=== PATIENT | male | born 1950 | race Caucasian/White ===

== ENCOUNTER 2017-10-26 05:39 | Inpatient (IN) | payer MEDICARE ==
[~2017-10-26] VITALS: Ht 182.9 cm; Wt 132.4 kg
[2017-10-26] VITALS (7 sets, daily range): BP systolic 100–128; BP diastolic 52–73
[~2017-10-26 05:39] MED LIST: ACIPHEX 20 MG T20 MG PO; ALLOPURINOL 30300 M2 PO; CARISOPRODOL 3350 MG PO; COUMADIN 3 MG TA3 M1 PO; COUMADIN PO; COUMADIN7.5 MG PO; HYDROCHLOROTHIA25 M1 PO; IBUPROFEN 600600 M1 PO; KLOR-CON 1010 MEQ PO; LASIX 20 MG TAB20 MG PO; LEXAPRO 10 MG T10 MG PO; LISINOPRIL-HCT1 EAC1 PO; LOPRESSOR25 PO; MOBIC7.5 MG PO; NORCO 5-325 TA1 EACH PO; NORVASC5 MG PO; PEPCID40 MG PO; PREDNISONE 20 M20 M1 PO; TRAZODONE HCL50 MG PO; ZOCOR20 MG PO; ZOLOFT100 MG PO
[2017-10-26] MEDS ORDERED: SUPER B COMPLE150 MG PO (05:55)
[2017-10-26 06:13] LABS: ABSOLUTE EOSINOPHILS 0.3 thou/uL (0.0-0.7); ABSOLUTE LYMPHOCYTES 1.4 thou/uL (0.8-5.3); ABSOLUTE MONOCYTES 0.6 thou/uL (0.0-1.2); ABSOLUTE NEUTROPHILS 3.8 thou/uL (1.6-8.1); BASOPHILS 0.7 %; EOSINOPHILS 4.7 %; HEMATOCRIT 34.2 % (42.0-52.0); HEMOGLOBIN 11.7 gm/dL (14.0-18.0); LYMPHOCYTES 22.8 %; MCH 31.2 pg (26.0-34.0); MCHC 34.4 g/dL (28.0-37.0); MCV 90.9 fL (80.0-100.0); MONOCYTES 9.8 %; MPV 7.9 fl. (7.2-11.1); NUCLEATED RBCS 0 /100WBC; PLATELET COUNT* 178 thou/uL (150-400); RBC 3.76 mil/uL (4.50-6.00); RDW-CV 16.3 % (10.5-14.5); WBC 6.2 thou/uL (4.0-11.0)
[2017-10-26 06:19] LABS: PO2 81.1 mmHg (75.0-100.0)
[2017-10-26 06:20] LABS: PCO2 < 17.0 mmHg (35.0-45.0); pH 7.637 (7.340-7.450)
[2017-10-26 06:20] LABS: ANION GAP 12 mmol/L (7-16); BUN 34 mg/dL (7-18); CALCIUM 8.9 mg/dL (8.5-10.1); CHLORIDE 104 mmol/L (98-107); CO2 22 mmol/L (21-32); GLUCOSE 107 mg/dL (70-99); POTASSIUM 4.1 mmol/L (3.5-5.1); SODIUM 138 mmol/L (136-145)
[2017-10-26 06:25] LABS: APTT 44.6 Seconds (25.0-31.3); INR 3.1; PROTIME 30.1 Seconds (9.20-11.50)
--- NOTE | 2017-10-26 06:30 | NUR ---
PT ASKED ABOUT TAKING AM MEDS--MEDS ON HOLD PER DR ERAZO
[2017-10-26 06:39] LABS: ALBUMIN 3.7 g/dL (3.4-5.0); ALKALINE PHOSPHATASE 73 U/L (46-116); NT-PRO BRAIN NAT PEPTIDE 25 pg/mL (<300); SGOT 33 U/L (15-37); SGPT 41 U/L (30-65); TOTAL BILIRUBIN 0.5 mg/dL (<0.1-1.0); TOTAL PROTEIN 6.7 g/dL (6.4-8.2); TROPONIN-I LEVEL <0.06 ng/mL (<0.06)
[2017-10-26] MEDS ORDERED: ASPIR 8181 MG PO (09:19)
--- NOTE | 2017-10-26 10:26 | NUR ---
RECEIVED REPORT. ASSUMED CARE OF PT. VSS. CARDIAC MONTIORING IN PLACE. ADMISSION HISTORY AND ASSESSMENT COMPLETED CHARTED. PT ALERT AND ORIENTED. PT ON 2L PT REPORTS SOA WITH ACTIVITY. PT DENIES ANY COMPLAINTS OF PAIN OR DISCOMFORT THIS AM. PT IS UP INDPENENTLY IN ROOM. PT ORIENTED TO ROOM AND CALL LIGHT. PT INFORMED OF PLAN OF CARE. CALL LIGHT IS WITHIN REACH. WILL CONTINUE TO MONITOR FOR DURAITON OF SHFIT.
--- NOTE | 2017-10-26 15:38 | 2DMMODE ---
[place] [address] 2 D/M-MODE ECHOCARDIOGRAM Name: VAL GAONA Room: [address] IN [facility]#: [id number] Admission: 10/26/17 Attend Phys: Ramírez Coronel, Discharge: Date of : 50 Date of Service: 10/26/17 1537 Report #: [id number] THIS REPORT FOR: //name// APPROVED REPORT Study performed: 10/26/2017 14:29:16 EXAM: Comprehensive 2D, Doppler, and color-flow Echocardiogram Patient Location: In-Patient Room #: [facility] [place] [facility] [place] Status: routine BSA: 2.48 HR: 91 bpm BP: 121/73 mmHg Rhythm: NSR Other Information Study Quality: Good Indications Dyspnea 2D Dimensions LVEF(%): 50.38 (>50%) IVSd: 14.50 (7-11mm) LVOT Diam: 26.56 (18-24mm) LVDd: 34.96 mm PWd: 11.03 (7-11mm) Ascending Ao: 36.15 (22-36mm) LVDs: 26.24 (25-40mm) Aortic Root: 38.07 mm Elizondo's LVEF: 50.38 % Volumes Left Atrial Volume (Systole) LA ESV Index: 28.40 mL/m2 Aortic Valve AoV Peak Gregory.: 1.94 m/s AO Peak Gr.: 15.01 mmHg LVOT Max P.26 mmHg AO Mean Gr.: 8.42 mmHg LVOT Mean P.24 mmHg LVOT Max V: 1.44 m/s AO V2 VTI: 30.90 cm LVOT Mean V: 0.96 m/s JOSSELIN (VTI): 5.39 cm2 LVOT V1 VTI: 30.05 cm Mitral Valve E/A Ratio: 0.69 [place] [address] 2 D/M-MODE ECHOCARDIOGRAM Name: VAL GAONA Room: [address] IN .R.#: [id number] Admission: 10/26/17 Attend Phys: Ramírez Coronel, Discharge: Date of : 50 Date of Service: 10/26/17 1537 Report #: [id number] MV Decel. Time: 325.98 ms MV E Max Gregory.: 1.12 m/s MV PHT: 94.53 ms MVA (PHT): 2.33 cm2 TDI E/Lateral E': 12.44 E/Medial E': 16.00 Medial E' Gregory.: 0.07 m/s Lateral E' Gregory.: 0.09 m/s Pulmonary Valve PV Peak Gregory.: 1.24 m/s PV Peak Gr.: 6.16 mmHg Tricuspid Valve TR Peak Gr.: 23.66 mmHg RVSP: 28.00 mmHg Left Ventricle The left ventricle is normal size. There is normal LV segmental wall motion. There is normal left ventricular wall thickness. Left ventricular systolic function is normal. The left ventricular ejection fraction is within the normal range. LVEF is 65-70%. Grade I - abnormal relaxation pattern. Right Ventricle The right ventricle is normal size. The right ventricular systolic function is normal. Atria The left atrium size is normal. The right atrium size is normal. Aortic Valve Mild aortic valve sclerosis. No aortic regurgitation is present. There is no aortic valvular stenosis. Mitral Valve There is mitral annular calcification. Trace mitral regurgitation. No evidence of mitral valve stenosis. Tricuspid Valve The tricuspid valve is normal in structure. Trace tricuspid regurgitation. The RVSP is ____28___ mmHg. Pulmonic Valve The pulmonary valve is normal in structure. There is no pulmonic [place] [address] 2 D/M-MODE ECHOCARDIOGRAM Name: ROXYVAL OBRIEN Rayshawn Room: [address] IN .R.#: [id number] Admission: 10/26/17 Attend Phys: Ramírez Coronel, Discharge: Date of : 50 Date of Service: 10/26/17 1537 Report #: [id number] Great Vessels The aortic root is normal in size. IVC is normal in size and collapses with >50% inspiration Pericardium There is no pericardial effusion. <Conclusion> The left ventricle is normal size. There is normal left ventricular wall thickness. Left ventricular systolic function is normal. The left ventricular ejection fraction is within the normal range. LVEF is 65-70%. Grade I - abnormal relaxation pattern. The right ventricle is normal size. The left atrium size is normal. Mild aortic valve sclerosis. No aortic regurgitation is present. There is no aortic valvular stenosis. There is mitral annular calcification. Trace mitral regurgitation. The tricuspid valve is normal in structure. Trace tricuspid regurgitation. The RVSP is ____28___ mmHg. IVC is normal in size and collapses with >50% inspiration There is no pericardial effusion. There is normal LV segmental wall motion. <ELECTRONICALLY SIGNED> By: Pilo Connolly MD, FACC 10/26/17 [phone] Pilo Connolly MD, FACC /INF
[2017-10-26 17:05] LABS: URINE BILIRUBIN NEGATIVE (Negative); URINE BLOOD NEGATIVE (Negative); URINE CLARITY CLEAR; URINE COLOR YELLOW; URINE GLUCOSE-RANDOM NEGATIVE (Negative); URINE KETONES NEGATIVE (Negative); URINE LEUKOCYTES NEGATIVE (Negative); URINE NITRITE NEGATIVE (Negative); URINE PROTEIN NEGATIVE (Negative); URINE SPECIFIC GRAVITY 1.025 (1.005-1.030); URINE UROBILINOGEN 0.2 E.U./dl (0.2-1.0)
[2017-10-26 17:10] LABS: BE -4.4 mmol/L (-2 to +3); HCO3 17.7 mmol/L (22.0-26.0); PO2 79.9 mmHg (75.0-100.0); pH 7.467 (7.340-7.450)
[2017-10-26 17:10] LABS: URINE POTASSIUM-RANDOM 59.6 mmol/L
[2017-10-26 17:13] LABS: AMP/METHAMP Negative (Negative); BARBITURATES Negative (Negative); BENZODIAZEPINES Negative (Negative); COCAINE Negative (Negative); METHADONE Negative (Negative); OPIATES Negative (Negative); PCP Negative (Negative); THC Negative (Negative)
--- NOTE | 2017-10-26 17:21 | NUR ---
VSS. CARDIAC MONTIORING IN PLACE WITH NO CHANGES THIS SHIFT. PT PROGRESSING TOWARDS GOALS. PT ON RA. PT HAS NOT HAD ANY COMPLAINTS OF SOA. PT IS UP INDEPENDENTLY IN ROOM. IVF INITIATED. PT HAS NOT HAD ANY COMPLAITNS OF PAIN OR DISCOMFORT. PT INFORMED OF PLAN OF CARE. STRESS TEST ORDERED FOR TOMORROW. PT CALL LIGHT IS WITHIN REACH. WILL CONTINUE TO MOTNIOR FOR DURAITON OF SHIFT.
[2017-10-27 04:00] VITALS: BP 104/58
--- NOTE | 2017-10-27 04:05 | NUR ---
ASSUMED CARE OF PT AT 1900. PT IS ALERT AND ORIENTED. VSS. PERRLA. NO COMPLAINTS OF PAIN. NO COMPLAINTS OF CHEST PAIN. PT IS IN SINUS RYTHM ON THE TELEMETRY. PT IS RESTING COMFORTABLY IN BED. RESPIRATIONS ARE EVEN AND NONLABORED. WILL CONTINUE TO MONITOR PT.
[2017-10-27 05:11] LABS: HEMATOCRIT 31.4 % (42.0-52.0); HEMOGLOBIN 10.9 gm/dL (14.0-18.0); MCH 31.4 pg (26.0-34.0); MCHC 34.8 g/dL (28.0-37.0); MCV 90.1 fL (80.0-100.0); MPV 8.3 fl. (7.2-11.1); RBC 3.48 mil/uL (4.50-6.00); RDW-CV 15.8 % (10.5-14.5); WBC 8.7 thou/uL (4.0-11.0)
[2017-10-27 05:32] LABS: ALBUMIN 3.2 g/dL (3.4-5.0); CALCIUM 7.9 mg/dL (8.5-10.1); CREATININE 1.6 mg/dL (0.6-1.3); POTASSIUM 4.3 mmol/L (3.5-5.1); TOTAL BILIRUBIN 0.2 mg/dL (<0.1-1.0); TOTAL PROTEIN 5.8 g/dL (6.4-8.2)
--- NOTE | 2017-10-27 08:30 | NUR ---
RECEIVED REPORT. ASSUMED CARE OF PT AT 0730. VSS. CARDIAC MONTIORING IN PLACE SR. AM ASSESSMENT AND VITALS COMPLETED CHARTED. PT ALERT AND ORIENTED. PT ON RA. IVF INFUSING PER ORDERS. PT DENEIS ANY COMPLAINTS OF PAIN OR DISCOMFORT. PT DENIES ANY SOA. NO EDEAM NOTED. PT NPO FOR STRESS TEST TODAY. PT INFORMED OF PLAN OF CARE. CALL LIGHT IS WITHIN REACH. WILL CONTINUE TO MOTNIOR FOR DURATION OF SHIFT.
[2017-10-27 08:57] VITALS: BP 131/65
[2017-10-27 11:20] VITALS: BP 139/76
--- NOTE | 2017-10-27 12:39 | EKG ---
[place] [address] ELECTROCARDIOGRAM REPORT Name: VAL GAONA Room: [address] ADM IN .R.#: [id number] Admission: 10/26/17 Attend Phys: Ramírez Coronel MD Discharge: Date of : 50 Report #: [id number] THIS REPORT FOR: //name// [facility] ED Test Date: 2017-10-26 Test Time: 05:49:28 Pat Name: VAL GAONA Department: Room: [facility] Gender: Relationship Consultant: SUAD Jerez : 1950 Requested By: Cristhian Dhillon Order Number: [id number] MD: Abraham Abdul Measurements Intervals [place] Rate: 68 P: -12 WV: 181 QRS: 33 QRSD: 98 T: 41 QT: 406 QTc: 432 Interpretive Statements Sinus rhythm Low voltage, extremity leads Compared to ECG 08/22/2017 17:09:34 No significant changes Electronically Signed On 10-27-2017 12:39:05 CAR REPAIRMAN by Abraham Abdul [email or web address] <ELECTRONICALLY SIGNED> By: Abraham Abdul MD, [facility] 10/27/17 1239 0549 0549 Abraham Abdul MD, FAC /EPI
--- NOTE | 2017-10-27 13:57 | NUR ---
CM SPOKE TO THE PATIENT TO DISCUSS HOME SITUATION, DISCHARGE PLANNING, AND TO INFORM OF THE ROLE OF CM. PATIENT ALERT, ORIENTED, AND INDEPENDENT WITH ADL'S. PATIENT WORKS AND DRIVES. PATIENT RESIDES AT HOME WITH . [facility]. PATIENT INFORMED THAT IF HE WERE TO STAY IN THE HOSPITAL ANOTHER NIGHT THAT HE MAY NEED TO HAVE SOMEONE BRING THE CPAP TO THE HOSPITAL. PATIENT PLANS TO RETURN HOME AT D/C AND DOES NOT BELIEVE THAT HE WILL NEED ANYTHING. CM WILL REMAIN AVAILABLE TO ASSIST AND FOLLOW NEEDED.
[2017-10-27 15:59] LABS: INR 3.1; PROTIME 29.9 Seconds (9.20-11.50)
[2017-10-27 16:00] VITALS: BP 113/71
--- NOTE | 2017-10-27 18:54 | NUR ---
VSS. CARDIAC MONTIORING IN PLACE WITH NO CHANGES THIS SHIFT. PT PROGRESSING TOWARDS GOALS. PT REMAINS ON RA. IVF INFUSING PER ORDERS. PT UP INDEPENDENTLY IN ROOM. PT HAS HAD NO COMPLAINTS OF PAIN OR DISCOMFORT THIS SHIFT. PT REMIANS INFORMED OF PLAN OF CARE. CALL LIGHT IS WITHIN REACH. WILLCONTINUE TO MONITOR FOR DURATION OF SHIFT.
[2017-10-27 19:35] VITALS: BP 114/72
[2017-10-28] VITALS: BP 116/73
--- NOTE | 2017-10-28 03:12 | NUR ---
ASSUMED CARE OF PT AT 1900. PT IS ALERT AND ORIENTED. VSS. PERRLA. NO COMPLAINTS OF PAIN. PT DENIES SOA. PT IS IN SINUS RYTHM ON THE TELEMETRY. PT IS RESTING COMFORTABLY IN BED. RESPIRATIONS ARE EVEN AND NONLABORED. WILL CONTINUE TO MONITOR PT.
[2017-10-28 04:00] VITALS: BP 128/84
[2017-10-28 08:31] VITALS: BP 132/81
[2017-10-28 11:57] VITALS: BP 133/80
[2017-10-28 16:00] VITALS: BP 127/67
--- NOTE | 2017-10-28 17:28 | EKG ---
[place] [address] ELECTROCARDIOGRAM REPORT Name: VAL GAONA Room: [address] ADM IN M.R.#: [id number] Admission: 10/26/17 Attend Phys: Ramírez Coronel MD Discharge: Date of : 50 Report #: [id number] THIS REPORT FOR: //name// [facility] Test Date: 2017-10-28 Test Time: 11:24:29 Pat Name: VAL GAONA Department: Room: [address] Gender: M Voice Network Administrator: JANIE : 1950 Requested By: Kerwin Aguilar Order Number: [id number] Randell MD: Pilo Connolly Measurements Intervals [place] Rate: 81 P: 16 WI: 166 QRS: 36 QRSD: 99 T: 33 QT: 358 QTc: 416 Interpretive Statements Sinus rhythm Borderline low voltage, extremity leads Compared to ECG 10/26/2017 05:49:28 No significant changes Electronically Signed On 10-28-2017 17:28:36 WET PAN MIXER by Pilo Connolly [email or web address] <ELECTRONICALLY SIGNED> By: Pilo Connolly MD, [facility] 10/28/17 1728 1124 1124 Pilo Connolly MD, FACC /EPI
--- NOTE | 2017-10-28 18:10 | NUR ---
PT LAYING IN BED WATCHING TV. A & O X4, ABLE TO COMMUNICATE NEEDS TO STAFF. UP AD AFSANEH IN ROOM, ENCOURAGED PT TO AMBULATE IN HALLWAY. UP TO SHOWER INDEPENDENTLY. IV FLUIDS INFUSING ORDERED. MEDS GIVEN PER MAR. CALL LIGHT AND NEEDED ITEMS WITHIN REACH.
[2017-10-28 20:00] VITALS: BP 132/86
[2017-10-29] VITALS: BP 129/72
[2017-10-29 04:12] VITALS: BP 139/87
[2017-10-29 04:43] LABS: HEMATOCRIT 31.7 % (42.0-52.0); HEMOGLOBIN 10.9 gm/dL (14.0-18.0); MCH 31.1 pg (26.0-34.0); MCHC 34.3 g/dL (28.0-37.0); MCV 90.7 fL (80.0-100.0); MPV 7.8 fl. (7.2-11.1); RBC 3.5 mil/uL (4.50-6.00); WBC 5.9 thou/uL (4.0-11.0)
[2017-10-29 04:56] LABS: INR 2.4; PROTIME 23.1 Seconds (9.20-11.50)
--- NOTE | 2017-10-29 05:12 | NUR ---
PATIENT PROGRESSING TOWARDS GOALS: PATIENT HAS DENIED CHEST PAIN AND SHORTNESS OF AIR THROUGHOUT THE SHIFT. PATIENT REMAINS ON ROOM AIR WITH SATS >92%. HOURLY ROUNDING OBSERVED. CALL LIGHT WITHIN REACH
[2017-10-29 05:16] LABS: CALCIUM 8.3 mg/dL (8.5-10.1); CREATININE 1.2 mg/dL (0.6-1.3); MAGNESIUM 1.5 mg/dL (1.8-2.4); POTASSIUM 4.7 mmol/L (3.5-5.1)
[2017-10-29 11:53] LABS: CALCIUM 8.6 mg/dL (8.5-10.1); CREATININE 1.2 mg/dL (0.6-1.3); MAGNESIUM 1.4 mg/dL (1.8-2.4); POTASSIUM 4.1 mmol/L (3.5-5.1)
[2017-10-29 12:24] VITALS: BP 136/78
--- NOTE | 2017-10-29 12:40 | CARDNUC ---
[place] [address] CARDIAC NUCLEAR IMAGING REPORT Name: VAL GAONA Room: [address]#: [id number] Admission: 10/26/17 Attend Phys: Ramírez Coronel, Discharge: Date of : 50 Date of Service: 10/29/17 1239 Report #: [id number] THIS REPORT FOR: //name// ADDENDUM APPROVED REPORT Exam: Nuclear Stress Test Indication: Chest pain, Dyspnea Patient Location: In-Patient Stress Tech: Shima Abreu Stress Nurse: Gale Lindo RN NM Tech:FLORINDA Evans Ht: 6 ft 0 in Wt: 287 lbs BSA: 2.48 m2 HR: 79 bpm BP: 123/74 mmHg BMI: 38.92 Rhythm: NSR Medical History Medical History: HTN, Hyperlipidemia, PAD Medications: Lisinopril, Amlodipine, Metoprolol, Aspirin,warfarin, simvastatin,kcl, furosemide Allergies: No known drug allergies Cardiac Risk Factors: HTN, Hyperlipidemia, Age,, PVD,chf Previous Cardiac Procedures: none Pretest Chest Pain Characteristics: Chest pain Stress Test Details Stress Test: Pharmacologic stress testing performed using 0.4 mg of regadenoson per 5 mL given IV over 10 seconds. Reason for pharmacologic stress test: physical limitation. HR Resting HR: 79 bpm Max Heart Rate (APMHR): 153 bpm Max HR Achieved: 94 bpm Target HR (85% APMHR): 130 bpm % of APMHR: 61 Recovery HR: 91 bpm BP Resting BP: 123/74 mmHg Max BP: 114/86 mmHg ECG Resting ECG: Sinus Rhythm, normal EKG Stress ECG: Sinus Rhythm, normal EKG ST Change: [place] [address] CARDIAC NUCLEAR IMAGING REPORT Name: VAL GAONA Room: [address] IN [facility].#: [id number] Admission: 10/26/17 Attend Phys: Ramírez Coronel, Discharge: Date of : 50 Date of Service: 10/29/17 1239 Report #: [id number] Arrhythmia: None Recovery ECG: Sinus Rhythm, normal EKG Recovery ST Change: None Recovery Arrhythmia: None Clinical Reason for Termination: Completed protocol Stress Symptoms: None Exercise duration: 0 min sec Exercise capacity: 1 METs Functional Aerobic Impairment 59% The patient had no significant symptoms with Lexiscan infusion. Nurse Comments pt tolerated well Stress ECG Conclusion The baseline 12-lead electrocardiogram shows sinus rhythm without significant ST or T wave abnormality. EKGs obtained during and post Lexiscan infusion showed sinus rhythm with no significant ST or T wave changes when compared baseline. There were no stress-induced arrhythmias. NM EXAM: Myocardial Perfusion STRESS/REST Imaging Protocol: Stress Tc-99m/Rest Tc-99m 2 days Pharmacologic Stress Pharmacologic stress test was performed by injecting Regadenoson 0.4 mg IV push followed by the intravenous injection of 40.5 mCi of Tc-99m Sestamibi. Time of stress injection: 924 Date: 10/27/2017 Time of stress imagin Administration Route: IV Gated Stress SPECT was performed 40 minutes after stress injection. The images were gated to evaluate regional wall motion and calculate left ventricular ejection fraction. Prone imaging was performed. Study Quality Study: Good Artifact: Mild Diaphragmatic artifact Study Data Post stress, [place] [address] CARDIAC NUCLEAR IMAGING REPORT Name: VAL GAONA Room: [address]#: [id number] Admission: 10/26/17 Attend Phys: Ramírez Coronel, Discharge: Date of : 50 Date of Service: 10/29/17 1239 Report #: [id number] 65%.. Perfusion Perfusion images obtained post Lexiscan stress in the supine position show mild photopenia in the inferior wall consistent with diaphragmatic attenuation artifact. Perfusion images post Lexiscan stress in the prone position shows uniform uptake of the radioisotope throughout the myocardium without defect. Wall Motion Normal left ventricular wall motion. Nuclear Conclusion ECG Findings: negative for ischemia Clinical Findings: negative for ischemia Nuclear Findings: negative for ischemia Exercise Capacity: not assessed Left Ventricular Function: normal Risk Study: low Myocardial perfusion images show no defect to suggest infarct or ischemia. Left ventricular systolic function is normal with an ejection fraction calculated be 65%. This is a low risk study. <Conclusion> The baseline 12-lead electrocardiogram shows sinus rhythm without significant ST or T wave abnormality. EKGs obtained during and post Lexiscan infusion showed sinus rhythm with no significant ST or T wave changes when compared baseline. There were no stress-induced arrhythmias. <ELECTRONICALLY SIGNED> By: Abraham Abdul MD, FACC 10/29/17 1239 1239 1239 Abraham Abdul MD, FACC /INF
[2017-10-29 16:00] VITALS: BP 151/79
--- NOTE | 2017-10-29 18:00 | NUR ---
PT/SPOUSE SEEKING INFORMATION ABOUT CLINICAL STATUS. EDUCATION R/T DIASTOLIC HEART FAILURE GIVEN, NEEDS REINFORCEMENT. REVIEWED LABS AND MEDICATIONS WITH SPOUSE. ANSWERED PT/SPOUSE QUESTIONS TO THEIR SATISFACTION. SPOUSE EXPRESSES FRUSTRATION THAT SHE IS WORKING AND CANNOT BE PRESENT FOR PHYSICIAN ASSESSMENT AND INFORMATION. PT LACKS INSIGHT AND UNDERSTANDING OF HIS DIAGNOSIS. CALL LIGHT AND NEEDED ITEMS WITHIN REACH.
[2017-10-29 20:00] VITALS: BP 144/49
[2017-10-30 00:18] VITALS: BP 131/78
[2017-10-30 03:59] VITALS: BP 132/85
--- NOTE | 2017-10-30 05:38 | NUR ---
PATIENT PROGRESSING TOWARDS GOALS: PATIENT REMAINS ON ROOM AIR WITH SATS >92%. PATIENT DENIES PAIN AND DISCOMFORT. MAGNESIUM REPLACED PER PROTOCOL. REDRAW DONE AT 0530, RESULTS NOT BACK AT THIS TIME. PATIENT UP AD AFSANEH IN THE ROOM. IVF INFUSING PER ORDERS. HOURLY ROUNDING OBSERVED. CALL LIGHT WITHIN REACH
[2017-10-30 08:20] VITALS: BP 142/85
[2017-10-30 12:08] VITALS: BP 154/90
[2017-10-30 16:06] VITALS: BP 141/78
[2017-10-30 16:07] LABS: INR 1.4; PROTIME 13.8 Seconds (9.20-11.50)
[2017-10-30] MEDS ORDERED: MAGOX 400400 MG PO (17:01)
--- NOTE | 2017-10-30 18:15 | NUR ---
PT WITH COMPLETE DC ORDER. REVIEWED DC INSTRUCTIONS AND MED LIST WITH PT/SPOUSE. ANSWERED PT/SPOUSE QUESTION TO THEIR SATISFACTION. DC'D TELEMETRY ON PT WITHOUT IV ACCESS. PT IN POSSESSION OF ALL BELONGINGS. PT LEFT UNIT BY AMBULATING WITH SPOUSE AND NURSING STAFF TO FRONT ENTRANCE OF HOSPITAL. SPOUSE TO TRANSPORT PT HOME VIA PERSONAL CAR.
[2017-10-31 09:07] LABS: ANA INTERPRETATION Negative (Negative)
--- NOTE | 2017-11-09 10:41 | CON ---
[address] [address] CONSULTATION Name: VAL GAONA Room: [address] IN .R.#: [id number] Admission: 10/26/17 Attend Phys: Ramírez Coronel MD Discharge: 10/30/17 Date of : 50 Report #: [id number] THIS REPORT FOR: //name// CC: Ramírez Coronel [facility] DATE OF SERVICE: 10/26/2017 REQUESTING PHYSICIAN: Ramírez Coronel MD. REASON FOR CONSULTATION: Acute kidney injury. HISTORY OF PRESENT ILLNESS: The patient is a very pleasant 67-year-old gentleman who presents to the hospital today, 10/26/2017 with complaints of some shortness of breath that started yet. The patient states the symptoms started a day prior to admission. He had some slight chest discomfort. No pain or pressure. There is no fever, no chills, no cough. At the time of my examination, he already feels much better. PAST MEDICAL HISTORY: Significant for pulmonary embolism in 2003, history of DVT, history of hypertension, history of chronic kidney disease, stage 3, baseline creatinine around 1.3 and history of morbid obesity. MEDICATIONS: Prior to admission included allopurinol, Meloxicam, simvastatin, lisinopril with hydrochlorothiazide, Coumadin, furosemide, metoprolol. REVIEW OF SYSTEMS: Positive for the symptoms as mentioned earlier, otherwise negative. FAMILY HISTORY: Negative for renal disease. SOCIAL HISTORY: No tobacco or alcohol abuse. PHYSICAL EXAMINATION: GENERAL: Awake, alert, oriented. VITAL SIGNS: Blood pressure 105/55, heart rate 83, afebrile. HEENT: Pupils are round. NECK: Fatty. LUNGS: Clear. CARDIOVASCULAR: Regular rate. ABDOMEN: Soft. LOWER EXTREMITIES: No edema. ASSESSMENT: Acute kidney injury, probably multifactorial. The patient has been taking lisinopril with hydrochlorothiazide, [place] [address] CONSULTATION Name: VAL GAONA Room: [address]#: [id number] Admission: 10/26/17 Attend Phys: Ramírez Coronel MD Discharge: 10/30/17 Date of : 50 Report #: [id number] furosemide. His Meloxicam was stopped. His furosemide and lisinopril with hydrochlorothiazide was stopped as well. He had renal ultrasound ordered, result is pending. At this point, we will await results of renal ultrasound. Keep holding his lisinopril with hydrochlorothiazide and Lasix. Would avoid use of nonsteroidals in the future. Avoid use of meloxicam, ibuprofen or other nonsteroidals. Discussed plan with the patient and the patient's nurse. Thank you very much for asking my opinion on acute kidney injury. <ELECTRONICALLY SIGNED> By: Ciro Shah MD 11/09/17 1041 1557 [id number] LUANA Chew
== END 2017-10-30 19:14 | disposition home or self-care (01) | DRG 682 ==
LOC: M.ERS 05:39 → M.TBA-ER 06:51 → M.2W 06:51
PROVIDERS: Family Medicine; Internal Medicine; Internal Medicine Nephrology; ADMIT Internal Medicine
DX: N17.0 Acute kidney failure with tubular necrosis (principal); I50.31 Acute diastolic (congestive) heart failure; J96.01 Acute respiratory failure with hypoxia; E87.3 Alkalosis; I13.0 Hypertensive heart and chronic kidney disease with heart failure and stage 1 through stage 4 chronic kidney disease, or unspecified chronic kidney disease; M62.82 Rhabdomyolysis; E87.2 Acidosis; N18.3 Chronic kidney disease, stage 3 (moderate); E66.01 Morbid (severe) obesity due to excess calories; G47.33 Obstructive sleep apnea (adult) (pediatric); E83.42 Hypomagnesemia; Z86.711 Personal history of pulmonary embolism; Z86.718 Personal history of other venous thrombosis and embolism; Z82.49 Family history of ischemic heart disease and other diseases of the circulatory system; Z68.39 Body mass index [BMI] 39.0-39.9, adult; Z23 Encounter for immunization

== ENCOUNTER 2018-04-24 09:16 | Emergency (ER) | payer MEDICARE ==
[~2018-04-24] VITALS: Ht 182.9 cm; Wt 131.5 kg
[~2018-04-24 09:16] MED LIST changes: +ASPIR 8181 MG PO; +MAGOX 400400 MG PO; +SUPER B COMPLE150 MG PO
[2018-04-24] MEDS ORDERED: MOBIC15 MG PO (09:28)
[2018-04-24] MEDS ORDERED: KLOR-CON 1010 MEQ PO (09:28)
[2018-04-24] MEDS ORDERED: FLEXERIL PO (09:28)
[2018-04-24] MEDS ORDERED: CRESTOR5 MG PO (09:29)
[2018-04-24 11:28] VITALS: BP 144/79
== END 2018-04-24 11:28 | disposition home or self-care (01) ==
LOC: M.ERS 09:16
DX: M54.5 Low back pain (principal); R06.00 Dyspnea, unspecified; I10 Essential (primary) hypertension; G47.30 Sleep apnea, unspecified; I26.99 Other pulmonary embolism without acute cor pulmonale; Z86.718 Personal history of other venous thrombosis and embolism

== ENCOUNTER 2018-04-30 07:09 | Inpatient (IN) | payer MEDICARE ==
[~2018-04-30] VITALS: Ht 182.9 cm; Wt 134.7 kg
[~2018-04-30 07:09] MED LIST changes: +CRESTOR5 MG PO; +FLEXERIL PO; +MOBIC15 MG PO
[2018-04-30 07:10] VITALS: BP 139/91
[2018-04-30] MEDS ORDERED: HYDROCODONE-ACE15 ML PO (07:17)
[2018-04-30 07:44] LABS: ABSOLUTE EOSINOPHILS 0.3 thou/uL (0.0-0.7); ABSOLUTE LYMPHOCYTES 1.9 thou/uL (0.8-5.3); ABSOLUTE MONOCYTES 0.7 thou/uL (0.0-1.2); ABSOLUTE NEUTROPHILS 3.7 thou/uL (1.6-8.1); BASOPHILS 0.5 %; EOSINOPHILS 5.1 %; HEMATOCRIT 42.4 % (42.0-52.0); HEMOGLOBIN 14.5 gm/dL (14.0-18.0); MCH 29.7 pg (26.0-34.0); MCHC 34.3 g/dL (28.0-37.0); MCV 86.6 fL (80.0-100.0); MONOCYTES 9.7 %; MPV 7.3 fl. (7.2-11.1); NUCLEATED RBCS 0 /100WBC; PLATELET COUNT* 199 thou/uL (150-400); POLYS 55.7 %; RBC 4.89 mil/uL (4.50-6.00); RDW-CV 16.2 % (10.5-14.5); WBC 6.7 thou/uL (4.0-11.0)
[2018-04-30 07:48] LABS: INR 2.2; PROTIME 22.1 Seconds (9.20-11.50)
[2018-04-30 07:52] LABS: CALCIUM 8.8 mg/dL (8.5-10.1); CREATININE 1.3 mg/dL (0.6-1.3)
[2018-04-30 07:57] LABS: ALBUMIN 3.7 g/dL (3.4-5.0); TOTAL BILIRUBIN 0.6 mg/dL (<0.1-1.0); TOTAL PROTEIN 7.1 g/dL (6.4-8.2)
[2018-04-30 08:47] LABS: URINE BILIRUBIN NEGATIVE (Negative); URINE BLOOD NEGATIVE (Negative); URINE CLARITY CLEAR; URINE COLOR YELLOW; URINE GLUCOSE-RANDOM NEGATIVE (Negative); URINE KETONES NEGATIVE (Negative); URINE LEUKOCYTES-REFLEX NEGATIVE (Negative); URINE NITRITE-REFLEX NEGATIVE (Negative); URINE PROTEIN NEGATIVE (Negative); URINE SPECIFIC GRAVITY 1.015 (1.005-1.030); URINE UROBILINOGEN 0.2 E.U./dl (0.2-1.0)
[2018-04-30 08:56] LABS: AMP/METHAMP Negative (Negative); BARBITURATES Negative (Negative); BENZODIAZEPINES Negative (Negative); COCAINE Negative (Negative); METHADONE Negative (Negative); OPIATES POSITIVE (Negative); PCP Negative (Negative); THC Negative (Negative)
[2018-04-30 13:26] VITALS: BP 191/132
[2018-04-30 13:50] VITALS: BP 188/117
[2018-04-30 16:19] VITALS: BP 138/92
--- NOTE | 2018-04-30 17:47 | NUR ---
PATIENT ARRIVED FROM ER THIS AFTERNOON. PATIENT SETTLED TO ROOM AND HISTORY, ASSESSMENT AND VITALS TAKEN AND DOCUMENTED. BLOOD PRESSURE HIGH UPON ARRIVAL, CLONIDINE GIVEN IN ER PRIOR TO TRANSFER. BLOOD PRESSURE STABLE AT THIS TIME. PATIENT HAD COMPLAINTS OF BACK/HIP PAIN, FENTANYL GIVEN. PATIENT DENIES ANY NEED FOR MEDICATION AT THIS TIME. PATIENT SLEPT THIS AFTERNOON. PATIENT HAS GOOD APPETITE THIS EVENING. PATIENT DENIES ANY NEEDS AT THIS TIME. CALL LIGHT WITHIN REACH. WILL CONTINUE TO MONITOR.
[2018-04-30 20:10] VITALS: BP 114/65
[2018-05-01] VITALS: BP 117/62
[2018-05-01 04:00] VITALS: BP 139/70
--- NOTE | 2018-05-01 07:07 | NUR ---
A&O X4 CALM COOPERITVE. PAIN MANAGEMENT IS PT PRIMARY FOCUS, PAIN MANAGEMENT IS ACHIEVED WITH MEDICATION ON OCT. ADLIB IN ROOM. SR ON MONITOR. RA. VITALS WNL. SEE MAR. SEE CHARTING. HOURLY ROUNDING FOR SAFETY.
[2018-05-01 07:30] VITALS: BP 148/93
[2018-05-01 12:23] VITALS: BP 146/98
--- NOTE | 2018-05-01 15:02 | NUR ---
[place] A&OX4, ROOM AIR, IV RIGHT AC SALINE LOCK. UP STAND BY ASSIST, STEADY SLOW GAIT. C/O LEFT HIP, LOW BACK/BUTTOCK PAIN, RELIEF WITH MEDICATION, COMES BACK ONCE WEARS OFF. OTHER PAIN MANAGEMENTS IN PLACE. NO OTHER CONCERNS AT THIS TIME. APPROPRIATE AND COOPORATIVE WITH CARE. PATIENT TRANSFERED TO [facility], LEFT FLOOR AT 1500. ALL BELONGINGS TAKEN, NOTHING LEFT BEHIND.
[2018-05-01 15:45] VITALS: BP 142/92
--- NOTE | 2018-05-01 19:46 | NUR ---
assumed care of pt at 1500, pt up ad carlos a, frequent intense pain noted, PRN medication administered as ordered, pt now in bed resting with eyes closed, hourly rounding maintained, call light in reach
[2018-05-02] VITALS: BP 150/74
[2018-05-02 04:21] LABS: CALCIUM 8.4 mg/dL (8.5-10.1); CREATININE 1.1 mg/dL (0.6-1.3)
[2018-05-02 04:23] LABS: INR 1.8
--- NOTE | 2018-05-02 06:54 | NUR ---
PATIENT HAS SLEPT WELL THROUGHOUT MOST OF THE NIGHT. PAIN CONTROLLED WITH ORAL PAIN MEDICATIONS AND CHARTED. PATIENT C/O PAIN WHEN TRYING TO GET UP OUT OF BED AND MOVING AROUND. IV IN RIGHT AC-SL. PATIENT INSTRUCTED TO USE CALL LIGHT WHEN NEEDING ASSISTANCE. HOURLY ROUNDS MADE. WILL CONTINUE WITH PLAN OF CARE AND NURSING TO MONITOR.
[2018-05-02 08:25] VITALS: BP 184/118
[2018-05-02 09:52] VITALS: BP 184/118
[2018-05-02] MEDS ORDERED: NORCO 5-325 TA1 EACH PO (09:54)
[2018-05-02 09:56] VITALS: BP 133/93
--- NOTE | 2018-05-02 10:01 | NUR ---
DRAFTING CLERK SPOKE TO PATIENT TO DISCUSS DISCHARGE PLANNING NEEDS AND HH AT D/C. PATIENT DECLINED HH. DRAFTING CLERK INFORMED NURSING AND CLAY PLANT TREATER OF PAIENT DECISION. CM WILL REMAIN AVAILABLE TO ASSIST AND FOLLOW NEEDED.
--- NOTE | 2018-05-02 10:33 | NUR ---
PATIENT BP ELEVATED THIS AM, RATING BACK PAIN A 04/07. PRN FENTANYL GIVEN FOR PAIN. PAIN RATING THEN /10. DR. SMITH NOTIFIED THAT BP WAS ELEVATED AT THIS TIME FROM PAIN, BP AT TIME OF DISCHARGE WNL'S. IR CALLING THIS NURSE THIS AM TO CANCEL CONS PER DR. ENGLE. DR. SMITH AWARE. ORDERS FOR PATIENT TO DISCHARGE TO HOME THIS AM. HERE AT BEDSIDE, UPDATE GIVEN ON PLAN OF CARE. PATIENT HAS PAIN MANAGMENT APPT ON TUESDAY. IV DC'D. VERBALIZES UNDERSTANDING OF PAPERWORK AND SCRIPT. PATIENT TAKEN OUT VIA WHEELCHAIR WITH ALL BELONGINGS.
== END 2018-05-02 10:36 | disposition home or self-care (01) | DRG 552 ==
LOC: M.ERS 07:09 → M.TBA-ER 11:20 → M.ORTHSURG 11:20 → M.2W 13:49 → M.ORTHSURG 05-01 15:05
PROVIDERS: Internal Medicine; Personal Emergency Response Attendant; ADMIT Family Medicine
DX: M48.07 Spinal stenosis, lumbosacral region (principal); M54.32 Sciatica, left side; I10 Essential (primary) hypertension; K21.9 Gastro-esophageal reflux disease without esophagitis; M25.552 Pain in left hip; F32.9 Major depressive disorder, single episode, unspecified; G47.30 Sleep apnea, unspecified; E78.5 Hyperlipidemia, unspecified; Z86.718 Personal history of other venous thrombosis and embolism; Z86.711 Personal history of pulmonary embolism; Z79.01 Long term (current) use of anticoagulants; Z79.82 Long term (current) use of aspirin; Z79.899 Other long term (current) drug therapy; Z82.49 Family history of ischemic heart disease and other diseases of the circulatory system

== ENCOUNTER 2018-05-17 19:15 | Emergency (ER) | payer MEDICARE ==
[~2018-05-17] VITALS: Ht 182.9 cm; Wt 127.9 kg
[~2018-05-17 19:15] MED LIST changes: +HYDROCODONE-ACE15 ML PO
[2018-05-17 22:34] VITALS: BP 165/91
== END 2018-05-17 22:36 | disposition home or self-care (01) ==
LOC: M.ERS 19:15
DX: S82.142A Displaced bicondylar fracture of left tibia, initial encounter for closed fracture (principal); I10 Essential (primary) hypertension; W17.89XA Other fall from one level to another, initial encounter; Y93.89 Activity, other specified; Y92.89 Other specified places as the place of occurrence of the external cause; Y99.8 Other external cause status

== ENCOUNTER 2019-02-22 15:25 | Emergency (ER) | payer MEDICARE ==
[~2019-02-22] VITALS: Ht 182.9 cm; Wt 126.5 kg
[2019-02-22] MEDS ORDERED: PREDNISONE 10 M10 M1 PO (15:43)
[2019-02-22] MEDS ORDERED: LISINOPRIL40 MG PO (15:43)
[2019-02-22] MEDS ORDERED: FENOFIBRATE160 MG PO (15:43)
[2019-02-22] MEDS ORDERED: VITAMIN D2000 UNIT PO (15:44)
[2019-02-22] MEDS ORDERED: FISH OIL 1,001000 M2 PO (15:44)
[2019-02-22] MEDS ORDERED: COQ-10100 MG PO (15:44)
[2019-02-22 16:14] LABS: ABSOLUTE BASOPHILS 0.1 thou/uL (0.0-0.2); ABSOLUTE EOSINOPHILS 0.2 thou/uL (0.0-0.7); ABSOLUTE LYMPHOCYTES 1.8 thou/uL (0.8-5.3); ABSOLUTE MONOCYTES 1.1 thou/uL (0.0-1.2); ABSOLUTE NEUTROPHILS 8.5 thou/uL (1.6-8.1); BASOPHILS 0.7 %; EOSINOPHILS 1.5 %; HEMATOCRIT 41.2 % (42.0-52.0); HEMOGLOBIN 13.8 gm/dL (14.0-18.0); LYMPHOCYTES 15.5 %; MCH 28.7 pg (26.0-34.0); MCHC 33.4 g/dL (28.0-37.0); MONOCYTES 9.7 %; MPV 7.6 fl. (7.2-11.1); NUCLEATED RBCS 0 /100WBC; PLATELET COUNT* 204 thou/uL (150-400); POLYS 72.6 %; RBC 4.79 mil/uL (4.50-6.00); RDW-CV 15.4 % (10.5-14.5); WBC 11.8 thou/uL (4.0-11.0)
[2019-02-22 16:22] LABS: ANION GAP 8 mmol/L (7-16); BUN 41 mg/dL (7-18); CALCIUM 9.3 mg/dL (8.5-10.1); CHLORIDE 104 mmol/L (98-107); CO2 27 mmol/L (21-32); CREATININE 2.1 mg/dL (0.6-1.3); GLUCOSE 96 mg/dL (70-99); POTASSIUM 5.3 mmol/L (3.5-5.1); SODIUM 139 mmol/L (136-145)
[2019-02-22 16:25] LABS: PROTIME 48.6 Seconds (9.20-11.50)
[2019-02-22 16:29] LABS: INR 4.8
[2019-02-22 16:33] LABS: ALBUMIN 3.7 g/dL (3.4-5.0); ALKALINE PHOSPHATASE 63 U/L (46-116); NT-PRO BRAIN NAT PEPTIDE 28 pg/mL (<300); SGOT 16 U/L (15-37); SGPT 35 U/L (30-65); TOTAL BILIRUBIN 0.4 mg/dL (<0.1-1.0); TOTAL PROTEIN 6.9 g/dL (6.4-8.2); TROPONIN-I LEVEL <0.06 ng/mL (<0.06)
[2019-02-22] MEDS ORDERED: HYDROCODON-ACE1 EAC7 PO (18:23)
[2019-02-22 18:43] VITALS: BP 120/64
== END 2019-02-22 18:43 | disposition home or self-care (01) ==
LOC: M.ERS 15:25
PROVIDERS: Emergency Medicine
DX: M25.061 Hemarthrosis, right knee (principal); R60.0 Localized edema; I10 Essential (primary) hypertension; G47.30 Sleep apnea, unspecified; Z86.711 Personal history of pulmonary embolism; Z86.718 Personal history of other venous thrombosis and embolism

== ENCOUNTER 2019-05-16 16:21 | Observation (INO) | payer OTHER, MEDICARE ==
[~2019-05-16] VITALS: Ht 180.3 cm; Wt 132.0 kg
[~2019-05-16 16:21] MED LIST changes: +ALLOPURINOL 30300 M1 PO; +COQ-10100 MG PO; +FENOFIBRATE160 MG PO; +FISH OIL 1,001000 M2 PO; +HYDROCODON-ACE1 EAC7 PO; +LIPITOR40 MG PO; +LISINOPRIL40 MG PO; +PREDNISONE 10 M10 M1 PO; +VITAMIN D2000 UNIT PO
[2019-05-16 16:28] VITALS: BP 135/83
[2019-05-16] MEDS ORDERED: PRAVACHOL40 M1 PO (16:38)
[2019-05-16] MEDS ORDERED: XARELTO10 MG PO (16:38)
[2019-05-16 16:49] LABS: ABSOLUTE BASOPHILS 0.1 thou/uL (0.0-0.2); ABSOLUTE EOSINOPHILS 0.3 thou/uL (0.0-0.7); ABSOLUTE LYMPHOCYTES 1.4 thou/uL (0.8-5.3); ABSOLUTE MONOCYTES 0.7 thou/uL (0.0-1.2); ABSOLUTE NEUTROPHILS 5.2 thou/uL (1.6-8.1); BASOPHILS 0.9 %; EOSINOPHILS 3.5 %; HEMATOCRIT 35.9 % (42.0-52.0); HEMOGLOBIN 12.4 gm/dL (14.0-18.0); MCHC 34.5 g/dL (28.0-37.0); MCV 92.6 fL (80.0-100.0); MPV 7.8 fl. (7.2-11.1); NUCLEATED RBCS 0 /100WBC; PLATELET COUNT* 219 thou/uL (150-400); POLYS 68.6 %; RBC 3.87 mil/uL (4.50-6.00); RDW-CV 17.3 % (10.5-14.5); WBC 7.5 thou/uL (4.0-11.0)
[2019-05-16 17:00] LABS: ANION GAP 10 mmol/L (7-16); BUN 20 mg/dL (7-18); CALCIUM 9.4 mg/dL (8.5-10.1); CHLORIDE 107 mmol/L (98-107); CO2 23 mmol/L (21-32); CREATININE 1.7 mg/dL (0.6-1.3); GLUCOSE 120 mg/dL (70-99); INR 1.1; POTASSIUM 4.1 mmol/L (3.5-5.1); PROTIME 11.4 Seconds (9.20-11.50); SODIUM 140 mmol/L (136-145)
[2019-05-16 17:12] LABS: ALBUMIN 3.8 g/dL (3.4-5.0); ALKALINE PHOSPHATASE 61 U/L (46-116); LIPASE 136 U/L (73-393); NT-PRO BRAIN NAT PEPTIDE 40 pg/mL (<300); SGOT 19 U/L (15-37); SGPT 31 U/L (30-65); TOTAL BILIRUBIN 0.3 mg/dL (<0.1-1.0); TROPONIN-I LEVEL <0.06 ng/mL (<0.06)
--- NOTE | 2019-05-16 17:12 | NUR ---
PT IS RESTING COMFORTABLY IN BED WITH FAMILY AT BEDSIDE. IV SALINE LOCKED. PT GIVEN REMOTE PER REQUEST.
--- NOTE | 2019-05-16 17:32 | NUR ---
MRI QUESTIONNAIRE FILLED OUT BY PATIENT, SIGNED AND PLACED IN PATIENT'S CHART.
[2019-05-16 20:36] VITALS: BP 159/95
[2019-05-16 20:40] VITALS: BP 151/89
--- NOTE | 2019-05-16 21:00 | NUR ---
PT ADMITTED TO ROOM 201 WITH LEFT SIDED WEAKNESS,AND TIA FROM ED VIA CART.PT BEGAN FEELING SYMPTOMS OF TINGLING TO LEFT SIDE OF FACE THAT PROGRESSED TO LEFT ARM AND LEFT LLE. PT HAS PREVIOUS HX PE ,DVT,CAD,CHF,CKD3. PT NIH SCALE IS 1 R/T LEFT SIDED FACIAL DROOP AT SMILE LINE. PT IS AOX4. ABLE TO ANSWER APPROPRIATELY. PT IS UP AD AFSANEH,STEADY AND REPORTS THAT HE WILL CALL IF HELP IS NEEDED.TELE IS SR. MORRO CTA ON RA. PT IS EDUCATED RESOLUTE PROFESSIONAL LIGHT, PLAN OF CARE AND OREINTED TO ROOM. NO FURTHER REQUESTS.
[2019-05-17 00:31] VITALS: BP 127/63
[2019-05-17 04:30] VITALS: BP 132/70
--- NOTE | 2019-05-17 07:39 | NUR ---
CHARTING OF CHASTITY LOZANO REVIEWED. I CONCUR WITH HER DOCUMENTATION.
[2019-05-17 08:00] VITALS: BP 132/76
--- NOTE | 2019-05-17 09:45 | EKG ---
[place] [address] ELECTROCARDIOGRAM REPORT Name: VAL GAONA Room: [address] ADM IN [facility]#: [id number] Admission: 05/16/19 Attend Phys: Nichelle Rodriguez MD Discharge: Date of : 50 Report #: [id number] THIS REPORT FOR: //name// [facility] ED Test Date: 2019-05-16 Test Time: 16:34:40 Pat Name: VAL GAONA Department: Room: [facility] Gender: M Social Work Professor: EV : 1950 Requested By: Kennedy Meyers Order Number: [id number] MD: Val Bunn Measurements Intervals [place] Rate: 88 P: 1 [place]: 185 QRS: 32 QRSD: 89 T: 22 QT: 342 QTc: 414 Interpretive Statements Sinus rhythm Low voltage, precordial leads Compared to ECG 03/22/2019 00:06:10 No significant changes Electronically Signed On 05-17-2019 9:44:59 CDT by Val Bunn [email or web address] <ELECTRONICALLY SIGNED> By: Val Bunn MD, [facility] 05/17/19 0944 1634 1634 Val Bunn MD, [facility] /EPI
[2019-05-17 11:30] VITALS: BP 141/88
--- NOTE | 2019-05-17 11:41 | NUR ---
PT A/O, NIH 1 FOR MINIMAL LEFT SIDE FACIAL DROOP. TELE TRACKING SR AND ALL VSS ON ROOM AIR. DENIES CP, SOA. PT WANTING TO DC TODAY- EDUCATED ON STROKE WORK UP AND NEED FOR EVAL. EDUCATED ON SAFETY AND PLAN OF CARE. PLEASE SEE ASSESSMENT FOR ADDITIONAL INFORMATION. WILL CONT TO MONITOR
[2019-05-17 15:59] VITALS: BP 141/88
--- NOTE | 2019-05-17 16:01 | NUR ---
Pt discharging to home, CM faxed order for 30 day event montior to Pt's PCP, Dr Hansel Tee
--- NOTE | 2019-05-18 09:14 | NUR ---
PT ORDERS RECEIVED AND ACKNOWLEDGED. PT DISCHARGED TO HOME PRIOR TO COMPLETION OF PT EVALUATION AND INTERVENTIONS.
== END 2019-05-17 18:27 | disposition home or self-care (01) ==
LOC: M.ERS 16:21 → M.2W 19:56 → M.TBA-ER 19:56 → M.2W 19:56
PROVIDERS: Emergency Medicine; ADMIT Internal Medicine
DX: I69.354 Hemiplegia and hemiparesis following cerebral infarction affecting left non-dominant side (principal); M54.5 Low back pain; E78.5 Hyperlipidemia, unspecified; M48.00 Spinal stenosis, site unspecified; N20.0 Calculus of kidney; G47.30 Sleep apnea, unspecified; Z79.01 Long term (current) use of anticoagulants; Z79.899 Other long term (current) drug therapy

== ENCOUNTER 2019-06-19 22:31 | Emergency (ER) | payer OTHER, MEDICARE ==
[~2019-06-19] VITALS: Ht 182.9 cm; Wt 127.0 kg
[~2019-06-19 22:31] MED LIST changes: +PRAVACHOL40 M1 PO; +XARELTO10 MG PO
[2019-06-19 23:25] LABS: ABSOLUTE BASOPHILS 0.1 thou/uL (0.0-0.2); ABSOLUTE EOSINOPHILS 0.3 thou/uL (0.0-0.7); ABSOLUTE LYMPHOCYTES 1.4 thou/uL (0.8-5.3); ABSOLUTE MONOCYTES 0.8 thou/uL (0.0-1.2); ABSOLUTE NEUTROPHILS 4.6 thou/uL (1.6-8.1); BASOPHILS 0.8 %; EOSINOPHILS 4.3 %; HEMATOCRIT 36.5 % (42.0-52.0); HEMOGLOBIN 12.4 gm/dL (14.0-18.0); LYMPHOCYTES 20.2 %; MCH 31.3 pg (26.0-34.0); MCV 92.2 fL (80.0-100.0); MONOCYTES 10.6 %; MPV 7.9 fl. (7.2-11.1); NUCLEATED RBCS 0 /100WBC; PLATELET COUNT* 220 thou/uL (150-400); POLYS 64.1 %; RBC 3.96 mil/uL (4.50-6.00); RDW-CV 15.3 % (10.5-14.5); WBC 7.2 thou/uL (4.0-11.0)
[2019-06-19 23:34] LABS: CALCIUM 9.6 mg/dL (8.5-10.1); CREATININE 1.6 mg/dL (0.6-1.3); POTASSIUM 3.8 mmol/L (3.5-5.1)
[2019-06-19 23:36] LABS: INR 1.1; PROTIME 11.7 Seconds (9.20-11.50)
[2019-06-19 23:44] LABS: ALBUMIN 3.5 g/dL (3.4-5.0); TOTAL BILIRUBIN 0.2 mg/dL (<0.1-1.0); TOTAL PROTEIN 6.7 g/dL (6.4-8.2)
[2019-06-20 02:06] VITALS: BP 146/80
--- NOTE | 2019-06-20 15:05 | EKG ---
[place] [address] ELECTROCARDIOGRAM REPORT Name: VAL GAONA Room: [facility]#: [id number] Admission: 06/19/19 Attend Phys: Discharge: 06/20/19 Date of : 50 Report #: [id number] THIS REPORT FOR: //name// [facility] ED Test Date: 2019-06-19 Test Time: 22:39:32 Pat Name: VAL GAONA Department: Room: Gender: M Marine Firer: : 1950 Requested By: Karmen Byrnes Order Number: [id number] MD: Pilo Connolly Measurements Intervals [place] Rate: 85 P: -32 [place]: 121 QRS: 29 QRSD: 97 T: 29 QT: 382 QTc: 455 Interpretive Statements Sinus rhythm Borderline low voltage, extremity leads Minimal ST depression, anterior leads Baseline wander in lead(s) V2 Compared to ECG 05/16/2019 16:34:40 ST (T wave) deviation now present Electronically Signed On 06-20-2019 15:05:30 CDT by Pilo Connolly [email or web address] <ELECTRONICALLY SIGNED> By: Pilo Connolly MD, FACC 06/20/19 1505 38 38 Pilo Connolly MD, [facility] /EPI
== END 2019-06-20 02:06 | disposition home or self-care (01) ==
LOC: M.ERS 22:31
PROVIDERS: Emergency Medicine
DX: R07.89 Other chest pain (principal); R60.0 Localized edema; I11.0 Hypertensive heart disease with heart failure; I50.9 Heart failure, unspecified; E78.5 Hyperlipidemia, unspecified; I73.9 Peripheral vascular disease, unspecified; G47.33 Obstructive sleep apnea (adult) (pediatric); K21.9 Gastro-esophageal reflux disease without esophagitis; Z86.711 Personal history of pulmonary embolism; Z86.718 Personal history of other venous thrombosis and embolism

== ENCOUNTER 2019-10-01 06:12 | Emergency (ER) | payer OTHER, MEDICARE ==
[~2019-10-01] VITALS: Ht 182.9 cm; Wt 129.3 kg
--- NOTE | ~2019-10-01 | EKG ---
[place] [address] ELECTROCARDIOGRAM REPORT Name: VAL GAONA Room: [facility]#: [id number] Admission: 10/01/19 Attend Phys: Discharge: Date of : 50 Date of Service: 10/01/19 0641 Report #: [id number] THIS REPORT FOR: cc: Hansel Tee Bradley L. DO Epiphany, Epiphany MD ~ THIS REPORT FOR: //name// [facility] ED Test Date: 2019-10-01 Test Time: 06:41:29 Pat Name: VAL GAONA Department: Room: Gender: M Lead Technical Architect: NIMESH : 1950 Requested By: Svetlana Ott Order Number: [id number] MD: Measurements Intervals [place] Rate: 79 P: -3 SD: 178 QRS: 35 QRSD: 85 T: 48 QT: 367 QTc: 421 Interpretive Statements Sinus rhythm Low voltage, extremity leads Baseline wander in lead(s) I,III,aVL,V3,V5 Compared to ECG 06/19/2019 22:39:32 ST (T wave) deviation no longer present [email or web address] By: 0 0 Epiphany Epiphany, /VIDYA
[2019-10-01] MEDS ORDERED: KEFLEX500 M2 PO (06:30)
[2019-10-01 06:45] LABS: INFLUENZA A ANTIGEN Positive (Negative); INFLUENZA B ANTIGEN Negative (Negative)
[2019-10-01 07:07] LABS: ABSOLUTE BASOPHILS 0.1 thou/uL (0.0-0.2); ABSOLUTE EOSINOPHILS 0.3 thou/uL (0.0-0.7); ABSOLUTE MONOCYTES 0.7 thou/uL (0.0-1.2); ABSOLUTE NEUTROPHILS 4.5 thou/uL (1.6-8.1); BASOPHILS 1.1 %; HEMATOCRIT 39.1 % (42.0-52.0); HEMOGLOBIN 13.3 gm/dL (14.0-18.0); LYMPHOCYTES 15.1 %; MCH 30.8 pg (26.0-34.0); MCHC 33.9 g/dL (28.0-37.0); MCV 90.6 fL (80.0-100.0); MONOCYTES 11.1 %; MPV 7.5 fl. (7.2-11.1); NUCLEATED RBCS 0 /100WBC; PLATELET COUNT* 186 thou/uL (150-400); POLYS 68.7 %; RBC 4.32 mil/uL (4.50-6.00); RDW-CV 16.7 % (10.5-14.5); WBC 6.5 thou/uL (4.0-11.0)
[2019-10-01 07:15] LABS: CALCIUM 9.2 mg/dL (8.5-10.1); CREATININE 1.4 mg/dL (0.6-1.3); POTASSIUM 4.4 mmol/L (3.5-5.1)
[2019-10-01 07:19] LABS: INR 1.3; PROTIME 12.9 Seconds (9.20-11.50)
[2019-10-01 07:20] LABS: ALBUMIN 3.6 g/dL (3.4-5.0); TOTAL BILIRUBIN 0.3 mg/dL (<0.1-1.0); TOTAL PROTEIN 7.1 g/dL (6.4-8.2)
[2019-10-01] MEDS ORDERED: TAMIFLU75 MG PO (07:35)
[2019-10-01] MEDS ORDERED: ZOFRAN ODT4 MG DISSOLVE (07:35)
[2019-10-01 07:58] VITALS: BP 124/74
== END 2019-10-01 07:59 | disposition home or self-care (01) ==
LOC: M.ERS 06:12
PROVIDERS: Personal Emergency Response Attendant
DX: J11.1 Influenza due to unidentified influenza virus with other respiratory manifestations (principal); I11.0 Hypertensive heart disease with heart failure; I50.9 Heart failure, unspecified; E78.5 Hyperlipidemia, unspecified; G47.33 Obstructive sleep apnea (adult) (pediatric); K21.9 Gastro-esophageal reflux disease without esophagitis; Z88.1 Allergy status to other antibiotic agents; Z86.711 Personal history of pulmonary embolism; Z86.718 Personal history of other venous thrombosis and embolism; Z88.2 Allergy status to sulfonamides

== ENCOUNTER 2019-10-17 09:56 | Emergency (ER) | payer OTHER, MEDICARE ==
[~2019-10-17] VITALS: Ht 182.9 cm; Wt 127.0 kg
[~2019-10-17 09:56] MED LIST changes: +KEFLEX500 M2 PO; +TAMIFLU75 MG PO; +ZOFRAN ODT4 MG DISSOLVE
[2019-10-17 10:54] LABS: HEMATOCRIT 38.1 % (42.0-52.0); HEMOGLOBIN 13.1 gm/dL (14.0-18.0); MCH 30.9 pg (26.0-34.0); MCHC 34.3 g/dL (28.0-37.0); MCV 90.1 fL (80.0-100.0); MPV 7.8 fl. (7.2-11.1); RBC 4.23 mil/uL (4.50-6.00); RDW-CV 16.6 % (10.5-14.5); WBC 6.4 thou/uL (4.0-11.0)
[2019-10-17 10:59] LABS: CALCIUM 9.1 mg/dL (8.5-10.1); CREATININE 1.4 mg/dL (0.6-1.3); POTASSIUM 4.1 mmol/L (3.5-5.1)
[2019-10-17 11:05] LABS: INR 1.1; PROTIME 11.5 Seconds (9.20-11.50)
[2019-10-17 11:15] LABS: ALBUMIN 3.7 g/dL (3.4-5.0); TOTAL BILIRUBIN 0.5 mg/dL (<0.1-1.0); TOTAL PROTEIN 7.2 g/dL (6.4-8.2)
[2019-10-17] MEDS ORDERED: PREDNISONE 20 M20 M1 PO (12:19)
[2019-10-17] MEDS ORDERED: NORCO 5-325 TA1 EAC1 PO (12:19)
[2019-10-17 12:40] VITALS: BP 139/76
--- NOTE | 2019-10-18 11:11 | EKG ---
[place] [address] ELECTROCARDIOGRAM REPORT Name: VAL GAONA Room: 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: : 1950 Requested By: CHRISTIANA ERAZO Order Number: [id number] MD: Abraham Abdul Measurements Intervals [place] Rate: 69 P: 35 [place]: 196 QRS: 44 QRSD: 102 T: 44 QT: 404 QTc: 433 Interpretive Statements Sinus rhythm Nonspecific T abnormalities, lateral leads Baseline wander in lead(s) I,III,aVL,aVF,V4,V5,V6 Compared to ECG 10/01/2019 06:41:29 T-wave abnormality now present Electronically Signed On 10-18-2019 11:10:36 CHIEF PSYCHOLOGIST by Abraham Abdul [email or web address] <ELECTRONICALLY SIGNED> By: Abraham Abdul MD, FACC 10/18/19 1110 1049 1049 Abraham Abdul MD, FAC /EPI
== END 2019-10-17 12:40 | disposition home or self-care (01) ==
LOC: M.ERS 09:56
DX: I82.492 Acute embolism and thrombosis of other specified deep vein of left lower extremity (principal); I11.0 Hypertensive heart disease with heart failure; I50.9 Heart failure, unspecified; K21.9 Gastro-esophageal reflux disease without esophagitis; Z86.718 Personal history of other venous thrombosis and embolism; E78.5 Hyperlipidemia, unspecified; Z88.2 Allergy status to sulfonamides; Z88.8 Allergy status to other drugs, medicaments and biological substances

== ENCOUNTER → 2020-06-23 | Outpatient (CLI) | payer OTHER, MEDICARE ==
[~2020-06-23] MED LIST changes: +NORCO 5-325 TA1 EAC1 PO
== END ==
LOC: M.MRI 13:12
PROVIDERS: ATTEND Orthopaedic Surgery
DX: S83.281A Other tear of lateral meniscus, current injury, right knee, initial encounter (principal); S83.242A Other tear of medial meniscus, current injury, left knee, initial encounter; M17.12 Unilateral primary osteoarthritis, left knee; M25.462 Effusion, left knee; X58.XXXA Exposure to other specified factors, initial encounter; Y93.89 Activity, other specified; Y92.89 Other specified places as the place of occurrence of the external cause; Y99.8 Other external cause status

== ENCOUNTER 2020-10-16 01:12 | Emergency (ER) | payer OTHER, MEDICARE ==
[~2020-10-16] VITALS: Ht 182.9 cm; Wt 136.1 kg
[2020-10-16] MEDS ORDERED: TRAMADOL 50 MG50 MG PO (01:40)
[2020-10-16 01:56] LABS: ABSOLUTE EOSINOPHILS 0.3 thou/uL (0.0-0.7); ABSOLUTE LYMPHOCYTES 1.1 thou/uL (0.8-5.3); ABSOLUTE MONOCYTES 1.3 thou/uL (0.0-1.2); ABSOLUTE NEUTROPHILS 7.6 thou/uL (1.6-8.1); BASOPHILS 0.3 %; EOSINOPHILS 2.5 %; HEMATOCRIT 37.8 % (42.0-52.0); HEMOGLOBIN 12.3 gm/dL (14.0-18.0); LYMPHOCYTES 11.1 %; MCH 28.6 pg (26.0-34.0); MCHC 32.5 g/dL (28.0-37.0); MCV 88.1 fL (80.0-100.0); MONOCYTES 12.9 %; MPV 7.7 fl. (7.2-11.1); NUCLEATED RBCS 0 /100WBC; PLATELET COUNT* 199 thou/uL (150-400); POLYS 73.2 %; RBC 4.29 mil/uL (4.50-6.00); RDW-CV 18.9 % (10.5-14.5); WBC 10.4 thou/uL (4.0-11.0)
[2020-10-16 02:06] LABS: CALCIUM 9.5 mg/dL (8.5-10.1); CREATININE 1.6 mg/dL (0.6-1.3); POTASSIUM 4.6 mmol/L (3.5-5.1)
[2020-10-16 02:07] LABS: INR 1.1; PROTIME 12.1 Seconds (9.20-11.50)
[2020-10-16 02:11] LABS: ALBUMIN 3.2 g/dL (3.4-5.0); TOTAL BILIRUBIN 0.4 mg/dL (<0.1-1.0); TOTAL PROTEIN 6.8 g/dL (6.4-8.2)
[2020-10-16 03:11] LABS: ESR (SEDRATE) 29 mm/hr (0-20)
[2020-10-16] MEDS ORDERED: PERCOCET 5-3251 EACH PO (08:58)
[2020-10-16] MEDS ORDERED: FLEXERIL PO (08:58)
[2020-10-16 09:25] VITALS: BP 116/47
== END 2020-10-16 09:25 | disposition home or self-care (01) ==
LOC: M.ERS 01:12
PROVIDERS: Emergency Medicine
DX: M43.6 Torticollis (principal); I13.0 Hypertensive heart and chronic kidney disease with heart failure and stage 1 through stage 4 chronic kidney disease, or unspecified chronic kidney disease; N18.30 Chronic kidney disease, stage 3 unspecified; I50.9 Heart failure, unspecified; F32.9 Major depressive disorder, single episode, unspecified; K21.9 Gastro-esophageal reflux disease without esophagitis; E78.5 Hyperlipidemia, unspecified; Z20.822 Contact with and (suspected) exposure to COVID-19; Z86.718 Personal history of other venous thrombosis and embolism; Z86.711 Personal history of pulmonary embolism; Z79.899 Other long term (current) drug therapy; Z79.01 Long term (current) use of anticoagulants

== ENCOUNTER 2020-10-17 16:32 | Inpatient (IN) | payer OTHER, MEDICARE ==
[~2020-10-17] VITALS: Ht 182.9 cm; Wt 136.1 kg
[~2020-10-17 16:32] MED LIST changes: +PERCOCET 5-3251 EACH PO; +TRAMADOL 50 MG50 MG PO
[2020-10-17 16:45] VITALS: BP 129/58
[2020-10-17 17:16] LABS: ABSOLUTE BASOPHILS 0.1 thou/uL (0.0-0.2); ABSOLUTE EOSINOPHILS 0.3 thou/uL (0.0-0.7); ABSOLUTE MONOCYTES 1.4 thou/uL (0.0-1.2); ABSOLUTE NEUTROPHILS 7.3 thou/uL (1.6-8.1); BASOPHILS 0.5 %; EOSINOPHILS 2.6 %; HEMATOCRIT 35.6 % (42.0-52.0); HEMOGLOBIN 11.7 gm/dL (14.0-18.0); LYMPHOCYTES 10.1 %; MCH 28.9 pg (26.0-34.0); MCHC 32.8 g/dL (28.0-37.0); MCV 88.2 fL (80.0-100.0); MONOCYTES 14.2 %; MPV 7.4 fl. (7.2-11.1); NUCLEATED RBCS 0 /100WBC; PLATELET COUNT* 188 thou/uL (150-400); POLYS 72.6 %; RBC 4.04 mil/uL (4.50-6.00); RDW-CV 18.6 % (10.5-14.5); WBC 10.1 thou/uL (4.0-11.0)
[2020-10-17 17:33] LABS: ALBUMIN 3.1 g/dL (3.4-5.0); CALCIUM 9.6 mg/dL (8.5-10.1); CREATININE 1.5 mg/dL (0.6-1.3); POTASSIUM 4.6 mmol/L (3.5-5.1); TOTAL BILIRUBIN 0.5 mg/dL (<0.1-1.0); TOTAL PROTEIN 7.3 g/dL (6.4-8.2)
[2020-10-17 19:58] VITALS: BP 126/77
[2020-10-17 20:20] VITALS: BP 147/83
[2020-10-18 09:00] VITALS: BP 146/89
--- NOTE | 2020-10-18 10:06 | EKG ---
[place] [address] ELECTROCARDIOGRAM REPORT Name: VAL GAONA Room: [address] ADM IN .R.#: [id number] Admission: 10/17/20 Attend Phys: Sukhi Macias Discharge: Date of : 50 Date of Service: 10/17/20 1723 Report #: [id number] THIS REPORT FOR: //name// [facility] ED Test Date: 2020-10-17 Test Time: 17:23:18 Pat Name: VAL GAONA Department: Room: [facility] Gender: M Bar Helper: CCD : 1950 Requested By: Benjamin Collazo Order Number: [id number] MD: Val Bunn Measurements Intervals [place] Rate: 96 P: -11 [place]: 178 QRS: 35 QRSD: 83 T: 44 QT: 327 QTc: 414 Interpretive Statements Sinus rhythm Sinus pause Low voltage, extremity leads Baseline wander in lead(s) V2,V4 Compared to ECG 10/17/2019 10:49:45 Sinus pause or arrest now present Low QRS voltage now present Electronically Signed On 10-18-2020 10:06:24 PRODUCTION SOLDERER by Val Bunn [email or web address] <ELECTRONICALLY SIGNED> By: Val Bunn MD, FACC 10/18/20 1006 1723 1723 Val Bunn MD, FAC /EPI
[2020-10-18 15:33] VITALS: BP 103/74
[2020-10-18 20:30] VITALS: BP 129/79
[2020-10-19 04:24] LABS: HEMATOCRIT 29.8 % (42.0-52.0); MCH 29.2 pg (26.0-34.0); MCHC 33.5 g/dL (28.0-37.0); MCV 87.4 fL (80.0-100.0); MPV 7.4 fl. (7.2-11.1); RBC 3.41 mil/uL (4.50-6.00); RDW-CV 18.3 % (10.5-14.5); WBC 8.8 thou/uL (4.0-11.0)
[2020-10-19 04:37] LABS: CALCIUM 9.1 mg/dL (8.5-10.1); CREATININE 1.4 mg/dL (0.6-1.3); POTASSIUM 4.8 mmol/L (3.5-5.1)
[2020-10-19 07:25] VITALS: BP 111/72
[2020-10-19] MEDS ORDERED: FLEXERIL PO (07:47)
[2020-10-19 12:22] VITALS: BP 111/72
[2020-10-19 13:27] VITALS: BP 111/72
== END 2020-10-19 13:35 | disposition home or self-care (01) | DRG 552 ==
LOC: M.ERS 16:32 → M.3W 18:17 → M.TBA-ER 18:17 → M.3W 21:22
PROVIDERS: Family Medicine; Physician Assistant; ADMIT Internal Medicine; ATTEND Internal Medicine
DX: M54.2 Cervicalgia (principal); J98.11 Atelectasis; I13.0 Hypertensive heart and chronic kidney disease with heart failure and stage 1 through stage 4 chronic kidney disease, or unspecified chronic kidney disease; Z68.41 Body mass index [BMI] 40.0-44.9, adult; I50.32 Chronic diastolic (congestive) heart failure; G47.33 Obstructive sleep apnea (adult) (pediatric); E78.5 Hyperlipidemia, unspecified; N18.30 Chronic kidney disease, stage 3 unspecified; K21.9 Gastro-esophageal reflux disease without esophagitis; E66.9 Obesity, unspecified; F32.9 Major depressive disorder, single episode, unspecified; Z20.822 Contact with and (suspected) exposure to COVID-19; Z86.718 Personal history of other venous thrombosis and embolism; Z86.711 Personal history of pulmonary embolism; Z79.01 Long term (current) use of anticoagulants; Z79.899 Other long term (current) drug therapy; Z88.8 Allergy status to other drugs, medicaments and biological substances

== ENCOUNTER 2020-10-26 22:51 | Inpatient (IN) | payer OTHER, MEDICARE ==
[~2020-10-26] VITALS: Ht 182.9 cm; Wt 138.0 kg
[2020-10-26 23:05] VITALS: BP 128/84
[2020-10-26 23:35] LABS: HEMOGLOBIN 12.1 gm/dL (14.0-18.0); MCH 28.7 pg (26.0-34.0); MCHC 33.1 g/dL (28.0-37.0); MPV 6.9 fl. (7.2-11.1)
[2020-10-26 23:42] LABS: HEMATOCRIT 36.5 % (42.0-52.0); MCV 86.6 fL (80.0-100.0); NUCLEATED RBCS 0 /100WBC; PLATELET COUNT* 314 thou/uL (150-400); RBC 4.22 mil/uL (4.50-6.00); RDW-CV 18.5 % (10.5-14.5); WBC 8.1 thou/uL (4.0-11.0)
[2020-10-26 23:46] LABS: CALCIUM 9.6 mg/dL (8.5-10.1); CREATININE 1.7 mg/dL (0.6-1.3); POTASSIUM 5.7 mmol/L (3.5-5.1)
[2020-10-26 23:48] LABS: INR 1.1; PROTIME 11.4 Seconds (9.20-11.50)
[2020-10-26 23:56] LABS: ALBUMIN 3.1 g/dL (3.4-5.0); MAGNESIUM 2.2 mg/dL (1.8-2.4); TOTAL BILIRUBIN 0.5 mg/dL (<0.1-1.0); TOTAL PROTEIN 6.6 g/dL (6.4-8.2)
[2020-10-27] VITALS (7 sets, daily range): BP systolic 97–132; BP diastolic 60–80
[2020-10-27 00:07] LABS: ABSOLUTE BASOPHILS 0.2 thou/uL (0.0-0.2); ABSOLUTE EOSINOPHILS 0.6 thou/uL (0.0-0.7); ABSOLUTE LYMPHOCYTES 1.8 thou/uL (0.8-5.3); ABSOLUTE MONOCYTES 0.9 thou/uL (0.0-1.2); ABSOLUTE NEUTROPHILS 4.7 thou/uL (1.6-8.1); GIANT PLATELETS RARE; PLATELET ESTIMATE ADEQUATE
[2020-10-27 00:08] LABS: ANISOCYTOSIS 1+
[2020-10-27 01:10] LABS: BE 1.3 mmol/L (-2 to +3); PCO2 35.8 mmHg (35.0-45.0); PO2 78.4 mmHg (75.0-100.0); pH 7.459 (7.340-7.450)
[2020-10-27 06:57] LABS: URINE BILIRUBIN NEGATIVE (Negative); URINE BLOOD NEGATIVE (Negative); URINE CLARITY CLEAR; URINE COLOR YELLOW; URINE GLUCOSE-RANDOM NEGATIVE (Negative); URINE KETONES NEGATIVE (Negative); URINE LEUKOCYTES-REFLEX NEGATIVE (Negative); URINE NITRITE-REFLEX NEGATIVE (Negative); URINE PROTEIN NEGATIVE (Negative); URINE UROBILINOGEN 0.2 E.U./dl (0.2-1.0)
[2020-10-27 08:19] LABS: ABSOLUTE BASOPHILS 0.1 thou/uL (0.0-0.2); ABSOLUTE EOSINOPHILS 0.4 thou/uL (0.0-0.7); ABSOLUTE LYMPHOCYTES 1.5 thou/uL (0.8-5.3); ABSOLUTE MONOCYTES 0.7 thou/uL (0.0-1.2); ABSOLUTE NEUTROPHILS 4.6 thou/uL (1.6-8.1); BASOPHILS 0.7 %; EOSINOPHILS 5.5 %; HEMOGLOBIN 11.9 gm/dL (14.0-18.0); LYMPHOCYTES 20.4 %; MCH 28.5 pg (26.0-34.0); MCHC 33.1 g/dL (28.0-37.0); MCV 86.1 fL (80.0-100.0); MPV 6.7 fl. (7.2-11.1); NUCLEATED RBCS 0 /100WBC; PLATELET COUNT* 289 thou/uL (150-400); POLYS 63.4 %; RBC 4.18 mil/uL (4.50-6.00); RDW-CV 18.4 % (10.5-14.5); WBC 7.2 thou/uL (4.0-11.0)
[2020-10-27 08:26] LABS: CALCIUM 9.6 mg/dL (8.5-10.1); CREATININE 1.9 mg/dL (0.6-1.3); POTASSIUM 4.1 mmol/L (3.5-5.1)
--- NOTE | 2020-10-27 11:14 | EKG ---
[place] [address] ELECTROCARDIOGRAM REPORT Name: VAL GAONA Room: [address] ADM IN .R.#: [id number] Admission: 10/27/20 Attend Phys: Nichelle Rodriguez, Discharge: Date of : 50 Date of Service: 10/26/20 2315 Report #: [id number] THIS REPORT FOR: //name// [facility] ED Test Date: 2020-10-26 Test Time: 23:15:46 Pat Name: VAL GAONA Department: Room: [facility] Gender: M Chronic Care Nurse: WAYNE : 1950 Requested By: Karmen Byrnes Order Number: [id number] MD: Val Bunn Measurements Intervals [place] Rate: 93 P: 1 ID: 175 QRS: 49 QRSD: 96 T: 32 QT: 360 QTc: 448 Interpretive Statements Sinus rhythm Low voltage, extremity and precordial leads Compared to ECG 10/17/2020 17:23:18 Sinus pause or arrest no longer present Electronically Signed On 10-27-2020 11:14:20 TRADE MARK EXAMINER by Val Bunn [email or web address] <ELECTRONICALLY SIGNED> By: Val Bunn MD, FAC 10/27/20 1114 2315 2315 Val Bunn MD, [facility] /EPI
[2020-10-28 04:20] VITALS: BP 146/80
[2020-10-28 04:46] LABS: HEMATOCRIT 33.6 % (42.0-52.0); HEMOGLOBIN 11.2 gm/dL (14.0-18.0); MCH 28.6 pg (26.0-34.0); MCHC 33.2 g/dL (28.0-37.0); MCV 86.2 fL (80.0-100.0); MPV 6.8 fl. (7.2-11.1); RBC 3.9 mil/uL (4.50-6.00); RDW-CV 18.2 % (10.5-14.5); WBC 6.8 thou/uL (4.0-11.0)
[2020-10-28 05:00] LABS: ALBUMIN 2.9 g/dL (3.4-5.0); CALCIUM 9.1 mg/dL (8.5-10.1); CREATININE 1.7 mg/dL (0.6-1.3); POTASSIUM 4.1 mmol/L (3.5-5.1); TOTAL BILIRUBIN 0.3 mg/dL (<0.1-1.0); TOTAL PROTEIN 6.2 g/dL (6.4-8.2)
[2020-10-28 08:00] VITALS: BP 160/92
[2020-10-28 12:00] VITALS: BP 126/74
[2020-10-28 16:13] VITALS: BP 139/75
[2020-10-28 20:40] VITALS: BP 138/86
[2020-10-29 02:24] VITALS: BP 141/61
[2020-10-29 04:53] LABS: HEMATOCRIT 36.3 % (42.0-52.0); HEMOGLOBIN 11.8 gm/dL (14.0-18.0); MCH 28.1 pg (26.0-34.0); MCHC 32.4 g/dL (28.0-37.0); MCV 86.7 fL (80.0-100.0); MPV 7.4 fl. (7.2-11.1); RBC 4.18 mil/uL (4.50-6.00); RDW-CV 18.7 % (10.5-14.5); WBC 9.1 thou/uL (4.0-11.0)
[2020-10-29 05:13] LABS: CALCIUM 9.8 mg/dL (8.5-10.1); CREATININE 1.6 mg/dL (0.6-1.3); MAGNESIUM 2.1 mg/dL (1.8-2.4); POTASSIUM 4.2 mmol/L (3.5-5.1)
[2020-10-29 05:54] VITALS: BP 118/56
[2020-10-29 08:00] VITALS: BP 125/76
[2020-10-29] MEDS ORDERED: BENZONATATE100 MG PO (09:59)
[2020-10-29 12:00] VITALS: BP 140/83
[2020-10-29 12:52] VITALS: BP 125/76
--- NOTE | 2020-10-29 13:03 | 2DMMODE ---
[place] [address] 2 D/M-MODE ECHOCARDIOGRAM Name: VAL GAONA Room: [address] IN ..#: [id number] Admission: 10/27/20 Attend Phys: Nichelle Rodriguez, Discharge: Date of : 50 Date of Service: 10/29/20 1303 Report #: [id number] THIS REPORT FOR: cc: Hansel Tee Bradley L. DO Blick, David R. MD [facility] ~ APPROVED REPORT Study performed: 10/29/2020 10:19:34 EXAM: Comprehensive 2D, Doppler, and color-flow Echocardiogram Patient Location: In-Patient Room #: [facility] Status: routine BSA: 2.55 HR: 90 bpm BP: 118/56 mmHg Rhythm: NSR Other Information Study Quality: Good Indications Dyspnea 2D Dimensions IVSd: 13.27 (7-11mm) LVOT Diam: 22.06 (18-24mm) LVDd: 34.65 mm PWd: 12.81 (7-11mm) Ascending Ao: 36.72 (22-36mm) LVDs: 20.41 (25-40mm) Aortic Root: 39.75 mm Volumes Left Atrial Volume (Systole) LA ESV Index: 20.80 mL/m2 Aortic Valve AoV Peak Gregory.: 1.71 m/s AO Peak Gr.: 11.64 mmHg LVOT Max P.20 mmHg AO Mean Gr.: 6.23 mmHg LVOT Mean P.74 mmHg LVOT Max V: 1.34 m/s AO V2 VTI: 29.50 cm LVOT Mean V: 0.90 m/s JOSSELIN (VTI): 3.66 cm2 LVOT V1 VTI: 28.23 [place] [address] 2 D/M-MODE ECHOCARDIOGRAM Name: VAL GAONA Room: [address] IN ..#: [id number] Admission: 10/27/20 Attend Phys: Nichelle Rodriguez, Discharge: Date of : 50 Date of Service: 10/29/20 1303 Report #: [id number] Mitral Valve MV Mean Gr.: 3.64 mmHg E/A Ratio: 0.71 MV Decel. Time: 375.29 ms MV E Max Gregory.: 0.93 m/s MV PHT: 108.83 ms MVA (PHT): 2.02 cm2 TDI E/Lateral E': 11.63 E/Medial E': 10.33 Medial E' Gregory.: 0.09 m/s Lateral E' Gregory.: 0.08 m/s Pulmonary Valve PV Peak Gregory.: 1.20 m/s PV Peak Gr.: 5.74 mmHg Left Ventricle The left ventricle is normal size. There is normal LV segmental wall motion. Mild concentric left ventricular hypertrophy. Left ventricular systolic function is normal. The left ventricular ejection fraction is within the normal range. LVEF is 60-65%. Grade I - abnormal relaxation pattern. Right Ventricle The right ventricle is normal size. The right ventricular systolic function is normal. Atria The left atrium size is normal. The right atrium size is normal. Aortic Valve Mild aortic valve sclerosis. No aortic regurgitation is present. There is no aortic valvular stenosis. Mitral Valve Moderate mitral annular calcification. The mitral valve is normal in structure. Trace mitral regurgitation. Mild to Moderate mitral stenosis. Tricuspid Valve The tricuspid valve is normal in structure. Unable to assess PA pressure. Trace tricuspid regurgitation. Pulmonic Valve The pulmonary valve is normal in structure. Trace [place]mon[place] [address] 2 D/M-MODE ECHOCARDIOGRAM Name: VAL GAONA Room: [address] IN [facility]#: [id number] Admission: 10/27/20 Attend Phys: Nichelle Rodriguez, Discharge: Date of : 50 Date of Service: 10/29/20 1303 Report #: [id number] Great Vessels The aortic root is normal in size. IVC is normal in size and collapses >50% with inspiration. Pericardium There is no pericardial effusion. <Conclusion> Mild concentric left ventricular hypertrophy. LVEF is 60-65%. Mild aortic valve sclerosis. <ELECTRONICALLY SIGNED> By: Val Bunn MD, FACC 10/29/20 1303 1303 1303 Val Bunn MD, FACC /INF
== END 2020-10-29 15:45 | disposition home or self-care (01) | DRG 291 ==
LOC: M.ERS 22:51 → M.TBA-ER 10-27 02:29 → M.2W 10-27 05:10
PROVIDERS: Emergency Medicine; Internal Medicine; ADMIT Internal Medicine; ATTEND Internal Medicine
PROC: 5A09357 Assistance with Respiratory Ventilation, Less than 24 Consecutive Hours, Continuous Positive Airway Pressure (ICD-10-PCS; principal; 2020-10-27)
PROC: 5A09357 Assistance with Respiratory Ventilation, Less than 24 Consecutive Hours, Continuous Positive Airway Pressure (ICD-10-PCS; 2020-10-28)
PROC: 5A09357 Assistance with Respiratory Ventilation, Less than 24 Consecutive Hours, Continuous Positive Airway Pressure (ICD-10-PCS; 2020-10-29)
DX: I13.0 Hypertensive heart and chronic kidney disease with heart failure and stage 1 through stage 4 chronic kidney disease, or unspecified chronic kidney disease (principal); J96.01 Acute respiratory failure with hypoxia; I50.33 Acute on chronic diastolic (congestive) heart failure; N17.9 Acute kidney failure, unspecified; E87.5 Hyperkalemia; G47.33 Obstructive sleep apnea (adult) (pediatric); N18.30 Chronic kidney disease, stage 3 unspecified; K21.9 Gastro-esophageal reflux disease without esophagitis; E78.5 Hyperlipidemia, unspecified; I08.1 Rheumatic disorders of both mitral and tricuspid valves; F32.9 Major depressive disorder, single episode, unspecified; Z20.822 Contact with and (suspected) exposure to COVID-19; Z96.652 Presence of left artificial knee joint; Z86.711 Personal history of pulmonary embolism; Z86.16 Personal history of COVID-19; Z86.718 Personal history of other venous thrombosis and embolism; Z79.899 Other long term (current) drug therapy; Z88.8 Allergy status to other drugs, medicaments and biological substances

== ENCOUNTER 2020-11-23 21:39 | Observation (INO) | payer OTHER, MEDICARE ==
[~2020-11-23] VITALS: Ht 182.9 cm; Wt 132.4 kg
[2020-11-23 02:00] VITALS: BP 129/63
[~2020-11-23 21:39] MED LIST changes: +BENZONATATE100 MG PO
[2020-11-23 21:49] VITALS: BP 116/67
[2020-11-23 22:33] LABS: ABSOLUTE BASOPHILS 0.1 thou/uL (0.0-0.2); ABSOLUTE EOSINOPHILS 0.3 thou/uL (0.0-0.7); ABSOLUTE LYMPHOCYTES 1.6 thou/uL (0.8-5.3); ABSOLUTE MONOCYTES 0.9 thou/uL (0.0-1.2); ABSOLUTE NEUTROPHILS 5.9 thou/uL (1.6-8.1); BASOPHILS 0.7 %; EOSINOPHILS 2.9 %; HEMATOCRIT 35.7 % (42.0-52.0); HEMOGLOBIN 11.8 gm/dL (14.0-18.0); LYMPHOCYTES 18.5 %; MCV 87.7 fL (80.0-100.0); MONOCYTES 10.4 %; MPV 7.3 fl. (7.2-11.1); NUCLEATED RBCS 0 /100WBC; PLATELET COUNT* 246 thou/uL (150-400); POLYS 67.5 %; RBC 4.06 mil/uL (4.50-6.00); RDW-CV 19.9 % (10.5-14.5); WBC 8.8 thou/uL (4.0-11.0)
[2020-11-23 22:43] LABS: CALCIUM 9.8 mg/dL (8.5-10.1); CREATININE 2.6 mg/dL (0.6-1.3); POTASSIUM 5.4 mmol/L (3.5-5.1)
[2020-11-23 22:45] LABS: INR 1.1; PROTIME 11.7 Seconds (9.20-11.50)
[2020-11-23 22:59] LABS: ALBUMIN 3.1 g/dL (3.4-5.0); MAGNESIUM 2.3 mg/dL (1.8-2.4); TOTAL BILIRUBIN 0.4 mg/dL (<0.1-1.0)
[2020-11-24 01:17] VITALS: BP 118/56
[2020-11-24 04:01] LABS: URINE BILIRUBIN NEGATIVE (Negative); URINE BLOOD NEGATIVE (Negative); URINE CLARITY CLEAR; URINE COLOR YELLOW; URINE GLUCOSE-RANDOM NEGATIVE (Negative); URINE KETONES NEGATIVE (Negative); URINE LEUKOCYTES-REFLEX NEGATIVE (Negative); URINE NITRITE-REFLEX NEGATIVE (Negative); URINE PROTEIN NEGATIVE (Negative); URINE UROBILINOGEN 0.2 E.U./dl (0.2-1.0)
[2020-11-24 04:12] LABS: CALCIUM 9.4 mg/dL (8.5-10.1); CREATININE 2.4 mg/dL (0.6-1.3); POTASSIUM 4.9 mmol/L (3.5-5.1)
[2020-11-24 04:19] VITALS: BP 114/66
[2020-11-24 08:30] VITALS: BP 123/69
[2020-11-24] MEDS ORDERED: MUCINEX600 MG PO (08:33)
[2020-11-24] MEDS ORDERED: FLONASE 0.05%50 MCG NARES (08:33)
[2020-11-24] MEDS ORDERED: CETIRIZINE HCL5 MG PO (08:33)
--- NOTE | 2020-11-24 09:50 | EKG ---
[place] [address] ELECTROCARDIOGRAM REPORT Name: VAL GANOA Room: [address] M.R.#: [id number] Admission: 11/24/20 Attend Phys: Sukhi Macias Discharge: Date of : 50 Date of Service: 11/23/202155 Report #: [id number] THIS REPORT FOR: //name// [facility] ED Test Date: 2020-11-23 Test Time: 21:56:59 Pat Name: VAL GAONA Department: Room: [facility] Gender: M Prosthetics Assistant: GIN : 1950 Requested By: Karmen Byrnes Order Number: [id number] MD: Val Bunn Measurements Intervals [place] Rate: 92 P: -2 [place]: 186 QRS: 69 QRSD: 84 T: 65 QT: 348 QTc: 431 Interpretive Statements Sinus rhythm Borderline low voltage, extremity leads Abnormal R-wave progression, early transition Compared to ECG 10/26/2020 23:15:46 No significant changes Electronically Signed On 11-24-2020 9:50:14 CDT by Val Bunn [email or web address] <ELECTRONICALLY SIGNED> By: Val Bunn MD, FAC 11/24/20 0950 2156 2156 Val Bunn MD, [facility] /EPI
[2020-11-24 11:38] VITALS: BP 127/70
[2020-11-24 14:09] VITALS: BP 127/70
[2020-11-24 14:13] VITALS: BP 127/70
== END 2020-11-24 16:18 | disposition home or self-care (01) ==
LOC: M.ERS 21:39 → M.2W 11-24 00:35 → M.TBA-ER 11-24 00:35 → M.2W 11-24 02:06
PROVIDERS: Emergency Medicine; ADMIT Internal Medicine; ATTEND Internal Medicine
DX: I13.0 Hypertensive heart and chronic kidney disease with heart failure and stage 1 through stage 4 chronic kidney disease, or unspecified chronic kidney disease (principal); N18.30 Chronic kidney disease, stage 3 unspecified; I50.32 Chronic diastolic (congestive) heart failure; I95.9 Hypotension, unspecified; K52.1 Toxic gastroenteritis and colitis; G47.33 Obstructive sleep apnea (adult) (pediatric); Z20.822 Contact with and (suspected) exposure to COVID-19; R10.31 Right lower quadrant pain; E87.5 Hyperkalemia; F32.9 Major depressive disorder, single episode, unspecified; K21.9 Gastro-esophageal reflux disease without esophagitis; E78.5 Hyperlipidemia, unspecified; N17.9 Acute kidney failure, unspecified; E66.9 Obesity, unspecified; Z68.39 Body mass index [BMI] 39.0-39.9, adult; Z79.01 Long term (current) use of anticoagulants; Z88.8 Allergy status to other drugs, medicaments and biological substances; Z79.899 Other long term (current) drug therapy; Z86.718 Personal history of other venous thrombosis and embolism

== ENCOUNTER → 2020-12-15 | Outpatient (CLI) | payer OTHER, MEDICARE ==
[~2020-12-15] MED LIST changes: +CETIRIZINE HCL5 MG PO; +FLONASE 0.05%50 MCG NARES; +MUCINEX600 MG PO; +TOPROL XL50 MG PO
[2020-12-15 16:14] LABS: ABSOLUTE BASOPHILS 0.1 thou/uL (0.0-0.2); ABSOLUTE EOSINOPHILS 0.4 thou/uL (0.0-0.7); ABSOLUTE LYMPHOCYTES 2.2 thou/uL (0.8-5.3); ABSOLUTE MONOCYTES 0.8 thou/uL (0.0-1.2); ABSOLUTE NEUTROPHILS 6.7 thou/uL (1.6-8.1); BASOPHILS 1.3 %; EOSINOPHILS 3.9 %; HEMATOCRIT 40.5 % (42.0-52.0); HEMOGLOBIN 13.3 gm/dL (14.0-18.0); LYMPHOCYTES 21.8 %; MCH 28.5 pg (26.0-34.0); MCHC 32.9 g/dL (28.0-37.0); MCV 86.8 fL (80.0-100.0); MONOCYTES 7.8 %; MPV 6.8 fl. (7.2-11.1); NUCLEATED RBCS 0 /100WBC; PLATELET COUNT* 284 thou/uL (150-400); POLYS 65.2 %; RBC 4.66 mil/uL (4.50-6.00); RDW-CV 19.3 % (10.5-14.5); WBC 10.3 thou/uL (4.0-11.0)
[2020-12-15 16:28] LABS: APTT 26.7 Seconds (25.0-31.3)
[2020-12-15 16:41] LABS: ALBUMIN 3.9 g/dL (3.4-5.0); CALCIUM 10.6 mg/dL (8.5-10.1); POTASSIUM 4.2 mmol/L (3.5-5.1); TOTAL BILIRUBIN 0.4 mg/dL (<0.1-1.0); TOTAL PROTEIN 7.8 g/dL (6.4-8.2)
[2020-12-15 17:17] LABS: ESR (SEDRATE) 26 mm/hr (0-20)
[2020-12-16 02:06] LABS: GLYCOHEMOGLOBIN (HGB A1C) 5.7 % (4.8-5.6)
--- NOTE | 2020-12-16 14:14 | EKG ---
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: : 1950 Requested By: Michelle Connolly Order Number: [id number] Reading MD: Abraham Abdul Measurements Intervals [place] Rate: 89 P: 237 [place]: 136 QRS: 48 QRSD: 107 T: 154 QT: 360 QTc: 439 Interpretive Statements Ectopic atrial rhythm Borderline repolarization abnormality Compared to ECG 11/23/2020 21:56:59 Ectopic atrial rhythm now present Sinus rhythm no longer present Electronically Signed On 12-16-2020 14:14:40 CDT by Abraham Abdul [email or web address] <ELECTRONICALLY SIGNED> By: Abraham Abdul MD, [facility] 12/16/20 1414 1558 1558 Abraham Abdul MD, [facility] /EPI
== END ==
LOC: M.LAB 15:38
PROVIDERS: ATTEND Orthopaedic Surgery
DX: Z01.818 Encounter for other preprocedural examination (principal); M17.11 Unilateral primary osteoarthritis, right knee

== ENCOUNTER 2020-12-19 18:24 | Emergency (ER) | payer OTHER, MEDICARE ==
[~2020-12-19] VITALS: Ht 182.9 cm; Wt 129.3 kg
[2020-12-19 20:17] VITALS: BP 132/77
== END 2020-12-19 20:18 | disposition home or self-care (01) ==
LOC: M.ERS 18:24
DX: M25.562 Pain in left knee (principal); Z88.8 Allergy status to other drugs, medicaments and biological substances

== ENCOUNTER → 2020-12-26 | Outpatient (CLI) | payer OTHER, MEDICARE ==
[~2020-12-26] VITALS: Ht 182.9 cm; Wt 129.3 kg
== END ==
LOC: M.ORTHSURG 05:33 → M.TBA 10:39 → M.ORTHSURG 10:39 → M.LAB 10:39 → EDSTATUS 10:47 → M.TBA 13:00 → M.ORTHSURG 16:13
PROVIDERS: ATTEND Orthopaedic Surgery
DX: M17.11 Unilateral primary osteoarthritis, right knee (principal); Z79.899 Other long term (current) drug therapy

== ENCOUNTER → 2021-01-02 | Day surgery (SDC) | payer OTHER, MEDICARE ==
--- NOTE | 2021-01-06 20:55 | OP ---
[address] [place] [address] OPERATIVE REPORT Name: VAL GAONA Room: [facility].#: [id number] Admission: 01/02/21 Attend Phys: Michelle Connolly DO Discharge: Date of : 50 Report #: [id number] THIS REPORT FOR: cc: Hansel Tee Bradley L. DO Walker, Angela DO ~ DOC #: [id number] Marquis Ritter DO DATE OF SURGERY: 01/02/2021 PREOPERATIVE DIAGNOSES: Left knee medial capsule insufficiency, status post left total knee arthroplasty. POSTOPERATIVE DIAGNOSES: Left knee medial capsule insufficiency, status post left total knee arthroplasty. PROCEDURE: 1. Left knee arthroscopy with extensive debridement. 2. Left knee open medial capsule imbrication. SURGEON: Michelle Connolly DO. AMERICAN HISTORY PROFESSOR: Marquis Ritter DO. ANESTHESIA: General. FLUIDS: Crystalloid. ESTIMATED BLOOD LOSS: 20 mL. DRAINS: None. SPECIMENS: None. COMPLICATIONS: None. CONDITION: Stable. DISPOSITION: PACU to home. PREOPERATIVE ANTIBIOTICS: 2 g Ancef. INDICATIONS: The patient is a 70-year-old male who underwent left total knee arthroplasty approximately 5 months ago. He has had continued pain in his left knee and feels that his patella tracks laterally throughout range of motion. This causes him pain and apprehension when ambulating. Different treatment [address] [place] [address] OPERATIVE REPORT Name: VAL GAONA Room: [facility]#: [id number] Admission: 01/02/21 Attend Phys: Michelle Connolly DO Discharge: Date of : 50 Report #: [id number] options were discussed. Since his patella does seem to track laterally, we recommended proceeding with a knee arthroscopy for extensive debridement and open medial capsular imbrication. Risks, complications, and alternatives were discussed with the patient. Please see clinic note for full details. In a conversation, he elected to proceed to the operating room. FINDINGS: Left knee diagnostic arthroscopy was performed and there was extensive amounts of scar tissue in the anterior knee and surrounding the patella. Upon palpating, the medial capsule was apparently thin and when the open procedure was begun, the medial capsule was again palpated to be very thin and once incised was markedly much more thin comparatively to the remainder of the capsule. DESCRIPTION OF PROCEDURE: The patient was seen in the preoperative area and the operative site was marked. He was transferred to the operating suite, placed in supine position on the operating table. Well-padded pneumatic tourniquet was placed to the left thigh, which was eventually inflated for a total time of approximately 45 minutes. Left lower extremity was placed in the arthroscopic knee stabilizer. A pad was placed under the right thigh. The left lower extremity was prepped and draped in the usual sterile fashion. Left lower extremity was exsanguinated with Esmarch and tourniquet was inflated to 300 mmHg. A timeout was performed verifying correct patient, procedure, procedure, site and all parties agreed. A standard arthroscopic lateral portal incision was made. The camera was placed inside the knee and a diagnostic arthroscopy was performed. There was extensive scar tissue throughout the knee and surrounding the patella. Pictures were taken. Next, a spinal needle was used to localize the medial portal. A standard medial arthroscopic incision was made and an arthroscopic shaver was placed in the knee. This was used to debride scar tissue surrounding the anterior knee and surrounding the patella. Upon debriding, the medial capsule was found to be comparatively very thin to the surrounding other capsule tissue. A decision was made at that time to proceed with open procedure and imbricate the medial capsule. Arthroscopic instruments were removed. The knee was drained and portal incisions were closed with 3-0 nylon sutures. Drapes were taken down. The pad under the right thigh was removed and the arthroscopic knee stabilizer was removed. The left lower extremity was then reprepped and redraped in the usual sterile fashion. Left lower extremity was then again exsanguinated and tourniquet was inflated to 300 mmHg. A standard midline incision was made over the knee and dissection was carried down to the level of capsule. Again, the capsule was palpated and found to be thin on the medial side. A standard medial parapatellar arthrotomy was made down to the level of the inferior pole of the patella. Then, #5 Arthrex FiberWires were used to imbricate the medial capsule in a [id number]-bt-bjwdc fashion. The patella was then tracked ____ medial laterally was found to have much more tension on the medial side than prior to the imbrication. The knee was then irrigated with sterile saline. Subcutaneous tissue was closed with [address] [address] OPERATIVE REPORT Name: VAL GAONA Room: [facility] Bola.Phi.#: [id number] Admission: 01/02/21 Attend Phys: Michelle Connolly DO Discharge: Date of : 50 Report #: [id number] interrupted 2-0 Vicryl suture. Skin was closed with 3-0 Monocryl and ____ sterile dressing placed with Xeroform, 4 x 4's, soft roll, Alberto wrap. The patient was awakened from anesthesia. The tourniquet was let down for a total time of 45 minutes. He was transferred off the operating suite back to PACU for recovery without complication. Dr. Connolly was present for all critical aspects of the case. Counts were was performed verified, correct x 2. ATTENDING NOTE: Operative report reviewed. Agree with above. I attest I was present through all pertinent decision making aspects of the case. DO LULY Rand/RICHARD/S[place] <ELECTRONICALLY SIGNED> By: Michelle Connolly DO 01/06/21 2055 1354 1652Angbailey Connolly DO /nt
== END | disposition home or self-care (01) ==
LOC: M.SUR 05:28
PROVIDERS: ATTEND Orthopaedic Surgery
DX: M23.52 Chronic instability of knee, left knee (principal); M25.562 Pain in left knee; E78.5 Hyperlipidemia, unspecified; I50.9 Heart failure, unspecified; Z98.890 Other specified postprocedural states; Z79.899 Other long term (current) drug therapy; Z96.652 Presence of left artificial knee joint; Z86.73 Personal history of transient ischemic attack (TIA), and cerebral infarction without residual deficits; Z87.442 Personal history of urinary calculi; Z20.822 Contact with and (suspected) exposure to COVID-19; Z79.01 Long term (current) use of anticoagulants

== ENCOUNTER → 2021-02-16 | Outpatient (CLI) | payer OTHER, MEDICARE | LOC: M.MRI 13:43 | PROVIDERS: ATTEND Orthopaedic Surgery | DX: Z48.89 Encounter for other specified surgical aftercare (principal); S83.012A Lateral subluxation of left patella, initial encounter; X58.XXXA Exposure to other specified factors, initial encounter; Y92.89 Other specified places as the place of occurrence of the external cause; Y93.89 Activity, other specified; Y99.8 Other external cause status ==

== ENCOUNTER 2021-03-12 08:14 | Inpatient (IN) | payer OTHER, MEDICARE ==
[~2021-03-12] VITALS: Ht 182.9 cm; Wt 146.7 kg
[2021-03-12 08:15] VITALS: BP 101/40
[2021-03-12] MEDS ORDERED: CEFTRIAXONE2 G1 IVPB (08:17)
[2021-03-12] MEDS ORDERED: FOLIC ACID1 MG PO (08:18)
[2021-03-12] MEDS ORDERED: TUBERSOL1 ML/1 VIA (08:19)
[2021-03-12] MEDS ORDERED: HEPARIN IV (08:19)
[2021-03-12 09:04] LABS: ABSOLUTE BASOPHILS 0.1 thou/uL (0.0-0.2); ABSOLUTE EOSINOPHILS 0.3 thou/uL (0.0-0.7); ABSOLUTE LYMPHOCYTES 0.9 thou/uL (0.8-5.3); ABSOLUTE MONOCYTES 0.6 thou/uL (0.0-1.2); BASOPHILS 1.1 %; EOSINOPHILS 4.4 %; HEMATOCRIT 26.7 % (42.0-52.0); HEMOGLOBIN 8.9 gm/dL (14.0-18.0); LYMPHOCYTES 12.6 %; MCH 29.4 pg (26.0-34.0); MCHC 33.1 g/dL (28.0-37.0); MONOCYTES 9.2 %; MPV 6.9 fl. (7.2-11.1); NUCLEATED RBCS 0 /100WBC; PLATELET COUNT* 224 thou/uL (150-400); POLYS 72.7 %; RBC 3.01 mil/uL (4.50-6.00); RDW-CV 19.1 % (10.5-14.5); WBC 6.9 thou/uL (4.0-11.0)
[2021-03-12 09:13] LABS: CALCIUM 8.4 mg/dL (8.5-10.1); CREATININE 1.7 mg/dL (0.6-1.3); POTASSIUM 4.4 mmol/L (3.5-5.1)
--- NOTE | 2021-03-12 09:13 | NUR ---
[facility]ERRA PICC LINE NURSE TOOK OUT RIGHT ARM PICC LINE AND SENT TO CULTURE TIP.
[2021-03-12 09:27] LABS: ALBUMIN 2.8 g/dL (3.4-5.0); TOTAL BILIRUBIN 0.4 mg/dL (<0.1-1.0); TOTAL PROTEIN 6.6 g/dL (6.4-8.2)
[2021-03-12 10:58] LABS: APTT 31.6 Seconds (25.0-31.3); INR 1.2; PROTIME 12.7 Seconds (9.20-11.50)
--- NOTE | 2021-03-12 11:50 | EKG ---
[place] [address] ELECTROCARDIOGRAM REPORT Name: VAL GANOA SUKHI Room: [facility] ADM IN [facility].#: [id number] Admission: 03/12/21 Attend Phys: Sukhi Macias Discharge: Date of : 50 Date of Service: 03/12/21 0831 Report #: [id number] THIS REPORT FOR: //name// [facility] ED Test Date: 2021-03-12 Test Time: 08:31:50 Pat Name: VAL GAONA Department: Room: [facility] Gender: M Traffic Engineering Director: KATHERINE : 1950 Requested By: Cristhian Dhillon Order Number: [id number] MD: Abraham Abdul Measurements Intervals [place] Rate: 78 P: -28 [place]: 134 QRS: 49 QRSD: 95 T: 55 QT: 395 QTc: 450 Interpretive Statements Sinus rhythm Baseline wander in lead(s) V1 Compared to ECG 12/15/2020 15:58:07 Ectopic atrial rhythm no longer present Electronically Signed On 03-12-2021 11:49:57 CDT by Abraham Abdul [email or web address] <ELECTRONICALLY SIGNED> By: Abraham Abdul MD, FAC 03/12/21 1149 0831 0831 Abraham Abdul MD, [facility] /EPI
[2021-03-12 14:00] VITALS: BP 123/35
[2021-03-12 15:00] VITALS: BP 149/69
--- NOTE | 2021-03-12 17:38 | NUR ---
Pt admitted this afternoon from ED for DVT to RUE R/T PICC line, which has been discontinued. Pt has MID Line to LUE. IV abx ordered. Pt toleration regular diet. Voiding without difficulty. VSS. Will continue to monitor.
[2021-03-12] MEDS ORDERED: MAGNESIUM OXID400 M1 PO (18:30)
[2021-03-12] MEDS ORDERED: FENOFIBRATE150 MG PO (18:32)
[2021-03-12] MEDS ORDERED: TOPROL XL50 MG PO (18:33)
[2021-03-12] MEDS ORDERED: CO Q-10100 M1 PO (18:34)
[2021-03-12] MEDS ORDERED: TESSALON PERLE100 M1 PO (18:35)
[2021-03-12] MEDS ORDERED: MUCINEX DM ER1 EAC1 PO (18:36)
[2021-03-12] MEDS ORDERED: CETIRIZINE HCL5 MG PO (18:37)
[2021-03-12] MEDS ORDERED: PROAIR HFA8.5 GM INH (18:38)
[2021-03-12 20:00] VITALS: BP 142/52
--- NOTE | 2021-03-12 20:00 | NUR ---
RECEIVED REPORT AND ASSUMED CARE OF PT, ASSESSMENT COMPLETED. RT UPPER ARM INFLAMMED, RED, EDEMATOUS AND PAINFUL. RT ARM ELEVATED ON PILLOW. LT KNEE BRACE ON. ANNETTE LOWER LEGS WITH 3+ EDEMA. PAINFUL TO MOVE. PT STATES HE IS NON AMBULATORY. TELEMETRY ON SHOWING SR. WILL CONT TO MONITOR AND ASSIST NEEDED.
[2021-03-13] VITALS: BP 128/53
[2021-03-13 04:14] VITALS: BP 137/54
--- NOTE | 2021-03-13 06:30 | NUR ---
SLEPT FAIRLY WELL TONIGHT. TURNING SELF AND ASKING FOR ASSIST WHEN NEEDED. ABLE TO USE BEDPAN. NO CHANGE IN ASSESSMENT. TELEMETRY CONT TO SHOW SR. STATES TYLENOL WORKED WELL FOR HIM. HS GOALS OF REST AND SAFETY ACHIEVED. HOURLY ROUNDING OBSERVED.
[2021-03-13 08:00] VITALS: BP 143/83
[2021-03-13 08:55] LABS: HEMATOCRIT 25.2 % (42.0-52.0); HEMOGLOBIN 8.3 gm/dL (14.0-18.0); MCH 29.1 pg (26.0-34.0); MCHC 32.7 g/dL (28.0-37.0); MPV 6.9 fl. (7.2-11.1); RBC 2.83 mil/uL (4.50-6.00); WBC 6.4 thou/uL (4.0-11.0)
[2021-03-13 09:05] LABS: CALCIUM 8.5 mg/dL (8.5-10.1); CREATININE 1.5 mg/dL (0.6-1.3); POTASSIUM 4.4 mmol/L (3.5-5.1)
--- NOTE | 2021-03-13 11:15 | NUR ---
Nutrition: Pt admitted with PICC line infection. Seen for high BMI. Pt has wound on knee also. He stated he usually weighs about 310#. He takes a B12 vitamin. Good appetite. Regular diet. Labs: albumin 2.8, prealb 18.8, BG WNL. We discussed high protein diet for wound healing. Recommended MVI. All questions answered. No other nutrition interventions needed at this time. Low risk.
--- NOTE | 2021-03-13 12:12 | NUR ---
Pt is A&O. Pt has been being skilled at [facility] and plan is for Pt to return at dc p:[phone] f:[phone]. Picc removed, midline placed, confirmed with SNF that they are able to accept a midline. Pt medically stable to dc once insurance auth received. CM updated Lyndsay at [facility] [place] [place],faxed clinical and asked that she initiate insuranec auth, CM to fax therapy evals once completed. Pt has a cpap. Normally resides at home. Independent. Has a cane and walker that he can use for mobility. If therapy evals available over the weekend, please fax to the above fax number.
--- NOTE | 2021-03-13 13:15 | NUR ---
REFERRAL PACKET FAXED TO [facility] ([phone]) AWAITING APPROVAL CM TO FOLLOW FOR SAFE D/C PLANNING.
--- NOTE | 2021-03-13 13:40 | 2DMMODE ---
[place] [address] 2 D/M-MODE ECHOCARDIOGRAM Name: VAL GAONA Room: [address] IN [facility]#: [id number] Admission: 03/12/21 Attend Phys: Sukhi Macias Discharge: Date of : 50 Date of Service: 03/13/21 1340 Report #: [id number] THIS REPORT FOR: cc: Hansel Tee Bradley L. DO Holkins, John M. MD [facility] ~ APPROVED REPORT Study performed: 03/13/2021 10:32:32 EXAM: Comprehensive 2D, Doppler, and color-flow Echocardiogram Patient Location: In-Patient Room #: 210 Status: routine BSA: 2.61 HR: 72 bpm BP: 143/83 mmHg Rhythm: NSR Other Information Study Quality: Good Indications HF 2D Dimensions IVSd: 11.79 (7-11mm) LVOT Diam: 23.76 (18-24mm) LVDd: 43.01 mm PWd: 10.85 (7-11mm) Ascending Ao: 40.23 (22-36mm) LVDs: 23.84 (25-40mm) Aortic Root: 39.57 mm Volumes Left Atrial Volume (Systole) LA ESV Index: 28.20 mL/m2 Aortic Valve AoV Peak Gregory.: 1.84 m/s AO Peak Gr.: 13.56 mmHg LVOT Max P.89 mmHg AO Mean Gr.: 6.88 mmHg LVOT Mean P.25 mmHg LVOT Max V: 1.31 m/s AO V2 VTI: 31.84 cm LVOT Mean V: 0.82 m/s JOSSELIN (VTI): 3.40 cm2 LVOT V1 VTI: 24.44 [place] [address] 2 D/M-MODE ECHOCARDIOGRAM Name: VAL GAONA Room: [address] IN ..#: [id number] Admission: 03/12/21 Attend Phys: Sukhi Macias Discharge: Date of : 50 Date of Service: 03/13/21 1340 Report #: [id number] Mitral Valve E/A Ratio: 0.84 MV Decel. Time: 321.15 ms MV E Max Gregory.: 1.10 m/s MV PHT: 93.13 ms MVA (PHT): 2.36 cm2 TDI E/Lateral E': 10.00 E/Medial E': 12.22 Medial E' Gregory.: 0.09 m/s Lateral E' Gregory.: 0.11 m/s Pulmonary Valve PV Peak Gregory.: 1.06 m/s PV Peak Gr.: 4.50 mmHg Tricuspid Valve RAP Estimate: 5.00 mmHg TR Peak Gr.: 35.96 mmHg RVSP: 41.00 mmHg PA Pressure: 41.00 mmHg Left Ventricle The left ventricle is normal size. There is normal LV segmental wall motion. There is normal left ventricular wall thickness. Left ventricular systolic function is normal. The left ventricular ejection fraction is within the normal range. LVEF is 60-65%. Grade I - abnormal relaxation pattern. Right Ventricle The right ventricle is normal size. The right ventricular systolic function is normal. Atria The left atrium size is normal. The right atrium size is normal. Aortic Valve Mild aortic valve sclerosis. No aortic regurgitation is present. There is no aortic valvular stenosis. Mitral Valve Moderate mitral annular calcification. There is no mitral valve regurgitation noted. No evidence of mitral valve stenosis. Tricuspid Valve The tricuspid valve is normal in structure. Mild tricuspid regurgitation. The RVSP is 35-[place] [address] 2 D/M-MODE ECHOCARDIOGRAM Name: VAL GAONA Room: [address] IN [facility]#: [id number] Admission: 03/12/21 Attend Phys: Sukhi Macias Discharge: Date of : 50 Date of Service: 03/13/21 1340 Report #: [id number] Pulmonic Valve The pulmonary valve is normal in structure. There is no pulmonic valvular regurgitation. Great Vessels The aortic root is normal in size. IVC is normal in size and collapses >50% with inspiration. Pericardium There is no pericardial effusion. <Conclusion> The left ventricle is normal size. There is normal left ventricular wall thickness. LVEF is 60-65%. Grade I - abnormal relaxation pattern. The right ventricle is normal size. The left atrium size is normal. Aortic valve is mildly sclerotic No aortic regurgitation is present. There is no aortic valvular stenosis. Moderate mitral annular calcification. There is no mitral valve regurgitation noted. No evidence of mitral valve stenosis. The tricuspid valve is normal in structure. Mild tricuspid regurgitation. The RVSP is 35-40 mmHg. IVC is normal in size and collapses >50% with inspiration. There is normal LV segmental wall motion. <ELECTRONICALLY SIGNED> By: Pilo Connolly MD, FACC 03/13/21 1340 1340 1340 Pilo Connolly MD, FACC /INF
[2021-03-13 15:34] VITALS: BP 120/45
[2021-03-13 17:45] VITALS: BP 122/47
[2021-03-13 20:55] VITALS: BP 154/67
--- NOTE | 2021-03-13 23:56 | NUR ---
AT 23:27 PT HAD TWO CONSECUTIVE TWO SECOND PAUSES FOLLOWED BY A THREE AND A HALF SECOND PAUSE ON MONITOR. OTHERWISE NSR. ASYMPTOMATIC. NO OTHER INCIDENT FOR 30 MIN FOLLOWING. STRIP PRINTED AND PLACED IN CHART. DR PAZ NOTIFIED OF THIS AND PAGED VIA YOU CALL.
[2021-03-14] VITALS (8 sets, daily range): BP systolic 11–142; BP diastolic 53–79
--- NOTE | 2021-03-14 05:08 | NUR ---
NICK MIDLINE INFILTRATED, VERY SWOLLEN AND PAINFUL, REMOVED AT 0500. LASIX GIVEN EARLY FOR SOA AND BLE SWELLING. LOOSENED IMMOBILIZER, IT WAS CUTTING INTO HIS ANKLES. DR PAZ NOTIFIED EARLIER IN SHIFT OF CARDIAC EVENT AT 23:27. RESPIRATORY THERAPY HAS SEEN AND EVALUATED.
--- NOTE | 2021-03-14 06:22 | NUR ---
UNABLE TO GET ANY BLOOD FOR LAB DRAW, ROD WELDER UNSUCCESSFUL ALSO. MIDLINE INFILTRATED AND REMOVED. NEW IV IN LFA. PT HAD SOME SWELLING IN BOTH LOWER LEGS WHICH MADE HIS IMMOBILIZER VERY UNCOMFORTABLE, LOOSENED. HE REPORTED SOA, LASIX GIVEN AT 0500. AT 0615 PT REPORTS FEELING MUCH BETTER. 1400 URINE OUTPUT THIS AM CHARTED. HE IS ALERT AND ORIENTED, DID NOT WANT ANY PAIN MEDS. SAYS HE FEELS FINE AND HIS LEGS ARE MUCH BETTER. SOA IS NOT AN ISSUE AT THIS TIME.
[2021-03-14 08:44] LABS: HEMATOCRIT 26.6 % (42.0-52.0); HEMOGLOBIN 8.8 gm/dL (14.0-18.0); MCH 29.3 pg (26.0-34.0); MCHC 33.1 g/dL (28.0-37.0); MCV 88.5 fL (80.0-100.0); MPV 6.8 fl. (7.2-11.1); RBC 3.01 mil/uL (4.50-6.00); RDW-CV 18.7 % (10.5-14.5); WBC 5.3 thou/uL (4.0-11.0)
[2021-03-14 08:59] LABS: CALCIUM 8.5 mg/dL (8.5-10.1); CREATININE 1.5 mg/dL (0.6-1.3); POTASSIUM 3.9 mmol/L (3.5-5.1)
--- NOTE | 2021-03-14 15:06 | NUR ---
ASSUMED CARE OF PT AT 0730. PT A&0X4, AT BEDSIDE THROUGHOUT SHIFT. COMPLAINED OF PAIN TO LEFT KNEE-TREATED WITH PRN TYLENOL WITH RELIEF. PT TRACING SR ON THE LABORER SALVAGE. ON RA SAT MID 90'S. PT STATED HE WAS SHORT OF BREATH THIS AM-02 SAT 96%, VSS, PT AND PT STATES ANXIETY HAS BEEN AN ISSUE FOR QUITE SOME TIME. PRN BENADRYL GIVEN WITH RELIEF. PT UP WITH 1 ASSIST-50% WB LLE. PT GOAL FOR TODAY IS PAIN AND ANXIETY MGMT, WORK WITH PT AND OT AND IV ABX. AM ASSESSMENT CHARTED. MEDICATIONS PER OCT. PT REPOSITIONS SELF WITH REMINDERS. HOURLY ROUNDING OBSERVED. BED IN LOW POSITION. CALL LIGHT WITHIN REACH. WILL CONTINUE PLAN OF CARE.
--- NOTE | 2021-03-14 23:34 | NUR ---
TELE SHOWING HEART PAUSES, ONE MEASURING 6 SECONDS IN DURATION. NSG SUP NOTIFIED, DR LIRA NOTIFIED AND ORDERS RECEIVED TO CONSULT CARDIOLOGY IN THE AM.
[2021-03-15 04:02] VITALS: BP 136/70
[2021-03-15 04:27] LABS: HEMATOCRIT 24.4 % (42.0-52.0); HEMOGLOBIN 8.3 gm/dL (14.0-18.0); MCH 29.7 pg (26.0-34.0); MCHC 33.9 g/dL (28.0-37.0); MCV 87.7 fL (80.0-100.0); RBC 2.78 mil/uL (4.50-6.00); WBC 5.7 thou/uL (4.0-11.0)
[2021-03-15 04:37] LABS: CALCIUM 8.3 mg/dL (8.5-10.1); CREATININE 1.5 mg/dL (0.6-1.3)
--- NOTE | 2021-03-15 06:40 | NUR ---
PT SLEPT FAIRLY WELL OVERNIGHT. LFA SL,VANC GIVEN ORDERED. TELE SR. PT HAD A 6 SECOND PAUSE ON TELEMETRY AND A COUPLE OF 2 AND 3 SECOND PAUSES, DR NOTIFIED AND ORDERS FOR TELE CONSULT THIS MORNING. CONSULT CALLED TO ANSWERING SERVICE BY CHARGE NURSE. WEARING CPAP AT HS. AM LABS. RECEIVED BENADRYL AND TYLEONOL THIS MORNING.USING URINAL TO VOID, ABLE TO USE CALL LITE AND MAKE NEEDS KNOWN. IMMOBILIZER INTACT TO LLE.
[2021-03-15 08:00] VITALS: BP 133/68
[2021-03-15 09:45] LABS: CHOLESTEROL 133 mg/dL (<200); HDL CHOLESTEROL 35 mg/dL (>40); LDL CHOLESTEROL 69 mg/dL (<100); TC:HDL 3.8 Ratio (Not establshd); TRIGLYCERIDE 147 mg/dL (<150); VLDL 29 mg/dL (<40)
[2021-03-15 09:50] LABS: SERUM ASSESSMENT Clear
[2021-03-15 12:13] VITALS: BP 140/83
[2021-03-15 17:27] VITALS: BP 166/83
--- NOTE | 2021-03-15 18:55 | NUR ---
RECEIVED REPORT. ASSUMED CARE OF PT AROUND 0730. AM ASSESSMENT AND VITALS COMPLETED CHARTED. MEDS PER EMAR. CARDIOLOGYT ROUNDED ON PT - DR ALTAMIRANO TO EVEALUATE TOMORROW IF PT NEEDS A PACEMAKER. PT WITH A LOT OF FLUID INTAKE TODAY- STATED THAT HE WAS UNDER THE IMPRESSION HE WAS SUPPOSED TO BE DRINKING MUCH POSSIBLE. PER CARDIOLOGY NOTE, FLUID RESTRICTION IS RECOMMENDED - PT EDUCATED ABOUT NEED TO LIMIT FLUIDS - WILL MESSAGE DOCTOR FOR AMOUNT OF RESTRICTION. LOTS OF VISITORS TODAY. ABLE TO SIT ON SIDE OF BED FOR A WHILE TODAY WITH ASSISTANCE. BRACE REMAINS IN PLACE TO LEFT KNEE. DRESSING UNDERNEATH INTACT. PAIN CONTROLLED WITH PO PAIN MEDS. FALL PRECAUTIONS IN PLACE. INVENTORY ACCOUNTANT IN PLACE. CALL LIGHT WITHIN REACH. HOURLY ROUNDING.
[2021-03-15 20:00] VITALS: BP 153/67
--- NOTE | 2021-03-15 20:00 | NUR ---
RECEIVED REPORT AND ASSUMED CARE OF PT, ASSESSMENT COMPLETED. MOVES SELF IN BED FOR COMFORT. ACEWRAP AND BRACE TO LT KNEE. OFFERED TO ASSIST PT WITH TURNING FURTHER ON HIS SIDE BUT STATES IT HURTS HIS KNEE MOVE. ANNETTE FEET AND ANKLES WITH 2+ EDEMA. VOIDING WELL PER URINAL. REINFORCED TO LIMIT PO INTAKE. TELEMETRY ON SHOWING SR WITH PVC. WILL CONT TO MONITOR AND ASSIST NEEDED.
[2021-03-15 23:54] VITALS: BP 148/66
[2021-03-16 03:52] VITALS: BP 156/77
[2021-03-16 05:36] LABS: HEMOGLOBIN 8.5 gm/dL (14.0-18.0); MCH 29.8 pg (26.0-34.0); MCV 87.6 fL (80.0-100.0); RBC 2.86 mil/uL (4.50-6.00); RDW-CV 18.9 % (10.5-14.5); WBC 4.9 thou/uL (4.0-11.0)
[2021-03-16 05:51] LABS: CALCIUM 8.6 mg/dL (8.5-10.1); CREATININE 1.5 mg/dL (0.6-1.3); POTASSIUM 3.7 mmol/L (3.5-5.1)
--- NOTE | 2021-03-16 07:51 | NUR ---
cm faxed therapy evals to [facility] at [phone].
[2021-03-16 08:00] VITALS: BP 134/81
--- NOTE | 2021-03-16 08:02 | NUR ---
AWAKE MOST OF NIGHT, UNABLE TO GET COMFORTABLE DUE TO LT KNEE AND BUTTOCK PAIN. PO MEDS GIVEN AND EFFECTIVE. NO CHANGE IN ASSESSMENT. HS GOALS OF REST AND SAFETY ACHIEVED. HOURLY ROUNDING OBSERVED.
[2021-03-16] MEDS ORDERED: HYDROCODON-ACE1 EAC7 PO (09:45)
[2021-03-16] MEDS ORDERED: DULCOLAX5 MG PO (09:45)
[2021-03-16] MEDS ORDERED: FOLIC ACID1 MG PO (09:45)
[2021-03-16 12:16] VITALS: BP 143/80
--- NOTE | 2021-03-16 15:43 | NUR ---
WRONG SIDE DOCUMENTED ON THIS INTERVENTION
--- NOTE | 2021-03-16 15:46 | NUR ---
LEFT BASILIC VESSEEL ACCESSED FOR 4 ALBANIAN SINGLE LUMEN PICC. LINE PRE-TRIMMED TO 48CM AND ADVANCED TO THE ZERO CHEVY WITH NO RESISTANCE MET. UPPER ARM CIRCUMFERENCE ABOVE INSERTION SITE=16 1/2". SHERLOCK MAGNET AND 3CG CONFIRMATION OF TIP TERMIANTION AT THE CAVOATRIAL JUNCTION APPRECIATED. GUIDE WIRE REMOVED, LINE FLUSHED AND INSERTION SITE DRESSED. REPORT GIVEN TO CHEVY LOZANO.
--- NOTE | 2021-03-16 16:09 | NUR ---
camacho circled back with ira at [facility] a second time to check for auth, still pending.l
[2021-03-16 16:34] VITALS: BP 140/70
[2021-03-16 20:00] VITALS: BP 170/85
[2021-03-17 00:53] VITALS: BP 150/74
[2021-03-17 04:00] VITALS: BP 141/70
--- NOTE | 2021-03-17 04:58 | NUR ---
PT SLEPT MOST OF SHIFT. ASSESSMENT DOCUMENTED. MEDS GIVEN PER E-OCT. IV PATENT AND PICC PATENT. PAIN MEDS GIVEN PER E-OCT. FALL PRECAUTIONS IN PLACE. PT ABLE TO MAKE NEEDS KNOWN. WILL CONTINUE WITH PLAN OF CARE.
[2021-03-17 08:00] VITALS: BP 167/80
[2021-03-17 11:48] VITALS: BP 128/62
--- NOTE | 2021-03-17 13:31 | NUR ---
CM CIRCLED BACK WITH LAURA AT [facility] RE: INSUR AUTH. PER LAURA, AUTH IS STILL PENDING. PT BEDSIDE RN NOTIFIED.
== END 2021-03-17 17:00 | DRG 299 ==
LOC: M.ERS 08:14 → M.TBA-ER 10:27 → M.2W 10:27
PROVIDERS: Family Medicine; Registered Nurse; ADMIT Internal Medicine; ATTEND Internal Medicine
PROC: B54NZZA Ultrasonography of Left Upper Extremity Veins, Guidance (ICD-10-PCS; principal; 2021-03-12)
PROC: 05HF33Z Insertion of Infusion Device into Left Cephalic Vein, Percutaneous Approach (ICD-10-PCS; principal; 2021-03-12)
PROC: 02PY33Z Removal of Infusion Device from Great Vessel, Percutaneous Approach (ICD-10-PCS; principal; 2021-03-12)
PROC: B548ZZA Ultrasonography of Superior Vena Cava, Guidance (ICD-10-PCS; 2021-03-16)
PROC: 02HV33Z Insertion of Infusion Device into Superior Vena Cava, Percutaneous Approach (ICD-10-PCS; 2021-03-16)
DX: I82.621 Acute embolism and thrombosis of deep veins of right upper extremity (principal); J96.01 Acute respiratory failure with hypoxia; I50.33 Acute on chronic diastolic (congestive) heart failure; L03.113 Cellulitis of right upper limb; Z68.41 Body mass index [BMI] 40.0-44.9, adult; I13.0 Hypertensive heart and chronic kidney disease with heart failure and stage 1 through stage 4 chronic kidney disease, or unspecified chronic kidney disease; E78.5 Hyperlipidemia, unspecified; E66.01 Morbid (severe) obesity due to excess calories; I45.5 Other specified heart block; N18.9 Chronic kidney disease, unspecified; K21.9 Gastro-esophageal reflux disease without esophagitis; B99.8 Other infectious disease; G47.33 Obstructive sleep apnea (adult) (pediatric); Z96.652 Presence of left artificial knee joint; Z20.822 Contact with and (suspected) exposure to COVID-19; Z79.899 Other long term (current) drug therapy; Z79.01 Long term (current) use of anticoagulants; Z88.8 Allergy status to other drugs, medicaments and biological substances

== ENCOUNTER 2021-04-17 10:10 | Inpatient (IN) | payer OTHER, MEDICARE ==
[~2021-04-17] VITALS: Ht 182.9 cm; Wt 136.1 kg
[~2021-04-17 10:10] MED LIST changes: +CEFTRIAXONE2 G1 IVPB; +CO Q-10100 M1 PO; +DULCOLAX5 MG PO; +FENOFIBRATE150 MG PO; +FOLIC ACID1 MG PO; +HEPARIN IV; +MAGNESIUM OXID400 M1 PO; +MUCINEX DM ER1 EAC1 PO; +PROAIR HFA8.5 GM INH; +TESSALON PERLE100 M1 PO; +TUBERSOL1 ML/1 VIA
[2021-04-17 10:15] VITALS: BP 134/73
[2021-04-17] MEDS ORDERED: AMOXICILLIN 50500 MG PO (10:23)
[2021-04-17 11:14] LABS: ABSOLUTE BASOPHILS 0.1 thou/uL (0.0-0.2); ABSOLUTE EOSINOPHILS 0.5 thou/uL (0.0-0.7); ABSOLUTE LYMPHOCYTES 1.4 thou/uL (0.8-5.3); ABSOLUTE MONOCYTES 0.8 thou/uL (0.0-1.2); ABSOLUTE NEUTROPHILS 4.4 thou/uL (1.6-8.1); BASOPHILS 1.1 %; EOSINOPHILS 6.7 %; HEMATOCRIT 35.9 % (42.0-52.0); HEMOGLOBIN 11.8 gm/dL (14.0-18.0); LYMPHOCYTES 19.2 %; MCH 29.1 pg (26.0-34.0); MCHC 32.9 g/dL (28.0-37.0); MCV 88.5 fL (80.0-100.0); MONOCYTES 11.6 %; MPV 7.2 fl. (7.2-11.1); NUCLEATED RBCS 0 /100WBC; PLATELET COUNT* 217 thou/uL (150-400); POLYS 61.4 %; RBC 4.05 mil/uL (4.50-6.00); RDW-CV 19.7 % (10.5-14.5); WBC 7.2 thou/uL (4.0-11.0)
[2021-04-17 11:56] LABS: CALCIUM 8.7 mg/dL (8.5-10.1); CREATININE 1.8 mg/dL (0.6-1.3); POTASSIUM 4.6 mmol/L (3.5-5.1)
[2021-04-17 12:01] LABS: ALBUMIN 3.4 g/dL (3.4-5.0); TOTAL BILIRUBIN 0.4 mg/dL (<0.1-1.0); TOTAL PROTEIN 6.7 g/dL (6.4-8.2)
--- NOTE | 2021-04-17 14:41 | EKG ---
[place] [address] ELECTROCARDIOGRAM REPORT Name: VAL GAONA Room: [facility]9 ADM IN [facility].#: [id number] Admission: 04/17/21 Attend Phys: Brant Connolly Discharge: Date of : 50 Date of Service: 04/17/21 1119 Report #: [id number] THIS REPORT FOR: //name// [facility] ED Test Date: 2021-04-17 Test Time: 11:19:51 Pat Name: VAL GAONA Department: Room: [facility] Gender: M Drill Hand: BRIAN : 1950 Requested By: Benjamin Collazo Order Number: [id number] MD: Val Bunn Measurements Intervals Kevin Rate: 48 P: 34 ME: 209 QRS: 44 QRSD: 85 T: 60 QT: 406 QTc: 363 Interpretive Statements sinus bradycardia with irregular rate Low voltage, precordial leads Baseline wander in lead(s) V4 Compared to ECG 03/12/2021 08:31:50 Low QRS voltage now present Sinus rhythm no longer present Electronically Signed On 04-17-2021 14:41:22 CDT by Val Bunn [email or web address] <ELECTRONICALLY SIGNED> By: Val Bunn MD, FAC 04/17/21 1441 1119 1119 Val Bunn MD, [facility] /EPI
[2021-04-17 16:46] VITALS: BP 109/57
[2021-04-17 20:00] VITALS: BP 98/50
[2021-04-18] VITALS (8 sets, daily range): BP systolic 102–141; BP diastolic 53–79
[2021-04-18] MEDS ORDERED: TOPROL XL50 MG PO (11:46)
--- NOTE | 2021-04-18 17:46 | NUR ---
PT ADMITTERD TO THE FLOOR AT APPROX.11 AM. PT IS ACCOMPANIED BY SPOUSE AND IS A&OX4. PT ADMITTED WITH SEPTIC JOINT TO L KNEE AND PULMONARY EMBOLISM. PT C/O PAIN AND TYLENOL PRN 1000 MG ADMINISTERED WITH EFFECTIVE RESULTS. MEDICATIONS RECONCILED AND ORDERS TO START DAILY MEDICATIONS THIS EVENING. PT REQUIRES STAND BY ASSIST WITH L LEG BRACE/IMMOBOLIZER ON. SAFETY MEASURES IN PLACE.ASSESSMENT COMPLETED. PT C/O DISCOMFORT TO L ARM WHERE IV INFILTRATED IN ED. ICE PACK GIVEN WITH EFFECTIVE RESULTS.
[2021-04-19 03:36] VITALS: BP 130/60
[2021-04-19 04:10] LABS: HEMOGLOBIN 10.6 gm/dL (14.0-18.0); MCH 29.1 pg (26.0-34.0); MCV 88.1 fL (80.0-100.0); MPV 7.3 fl. (7.2-11.1); RBC 3.64 mil/uL (4.50-6.00); RDW-CV 19.1 % (10.5-14.5); WBC 5.5 thou/uL (4.0-11.0)
[2021-04-19 04:21] LABS: CALCIUM 8.7 mg/dL (8.5-10.1); CREATININE 1.6 mg/dL (0.6-1.3); POTASSIUM 3.9 mmol/L (3.5-5.1)
[2021-04-19 04:55] VITALS: BP 134/67
--- NOTE | 2021-04-19 08:19 | NUR ---
PATIENT HAS RESTED WELL THROUGHOUT MOST OF THE NIGHT. VSS ON RA. PATIENT C/O PRESSURE/MILD PAIN IN LEFT KNEE. PATIENT HAS BEEN AFEBRILE. PULSES GOOD IN LEFT LEG AND NO REDNESS OR WARMTH NOTICED UPON ASSESSMENT. IV IN LEFT WRIST-SL. PATIENT INSTRUCTED TO USE CALL LIGHT WHEN NEEDING ASSISTANCE. HOURLY ROUNDS MADE. WILL CONTINUE WITH PLAN OF CARE AND NURSING TO MONITOR.
[2021-04-19 09:00] VITALS: BP 140/59
[2021-04-19 11:52] VITALS: BP 119/66
[2021-04-19 16:07] VITALS: BP 127/61
[2021-04-19 19:34] VITALS: BP 127/61
--- NOTE | 2021-04-19 20:16 | NUR ---
[facility] AAT 0730. ASSESSMENT COMPLETED. PT IS PLEASANTLY A&O X4. PRESENT. ASSESSMENT COMPLETED AND MEDICATIONS ADMINISTERED ORDERED. NEW ORDER TO DISCHARGE PT TO HOME. OUT OF TOWN AND ARRIVED AT 2009 TO TRANSPORT PT TO HOME. DISCHARGE INSTRUCTIONS REVIEWED WITH PT AND SPOUSE.HEART MONITOR REMOVED AND ALL BELONGINGS WITH PT. PT ASSISTED TO MEET SPOUSE AT ER TO DISCHARGE VIA CAR.
--- NOTE | 2021-04-20 16:58 | EKG ---
[place] [address] ELECTROCARDIOGRAM REPORT Name: VAL GAONA Room: [address] DIS IN M.R.#: [id number] Admission: 04/17/21 Attend Phys: Brant Connolly Discharge: 04/19/21 Date of : 50 Date of Service: 04/18/21 1336 Report #: [id number] THIS REPORT FOR: //name// [facility] Test Date: 2021-04-18 Test Time: 13:36:35 Pat Name: VAL GAONA Department: Room: [address] Gender: M Flagsetter: : 1950 Requested By: Benjamin Collazo Order Number: [id number] MD: Pilo Connolly Measurements Intervals [place] Rate: 80 P: 7 TX: 192 QRS: 53 QRSD: 94 T: 37 QT: 372 QTc: 430 Interpretive Statements Sinus rhythm Borderline low voltage, extremity leads Compared to ECG 04/17/2021 11:19:51 Sinus bradycardia no longer present Electronically Signed On 04-20-2021 16:58:22 CDT by Pilo Connolly [email or web address] <ELECTRONICALLY SIGNED> By: Pilo Connolly MD, [facility] 04/20/21 1658 1336 1336 Pilo Connolly MD, [facility] /EPI
== END 2021-04-19 20:40 | disposition home or self-care (01) | DRG 175 ==
LOC: M.ERS 10:10 → M.2W 14:27 → M.TBA-ER 14:27 → M.2W 04-18 10:34
PROVIDERS: Family Medicine; Physician Assistant; ADMIT Internal Medicine; ATTEND Internal Medicine
DX: I26.99 Other pulmonary embolism without acute cor pulmonale (principal); N17.0 Acute kidney failure with tubular necrosis; I82.412 Acute embolism and thrombosis of left femoral vein; I82.432 Acute embolism and thrombosis of left popliteal vein; Z68.41 Body mass index [BMI] 40.0-44.9, adult; I13.0 Hypertensive heart and chronic kidney disease with heart failure and stage 1 through stage 4 chronic kidney disease, or unspecified chronic kidney disease; M00.9 Pyogenic arthritis, unspecified; D68.69 Other thrombophilia; E78.5 Hyperlipidemia, unspecified; E66.01 Morbid (severe) obesity due to excess calories; N18.30 Chronic kidney disease, stage 3 unspecified; I50.9 Heart failure, unspecified; G47.33 Obstructive sleep apnea (adult) (pediatric); F32.9 Major depressive disorder, single episode, unspecified; K21.9 Gastro-esophageal reflux disease without esophagitis; Z20.822 Contact with and (suspected) exposure to COVID-19; Z96.652 Presence of left artificial knee joint; Z86.711 Personal history of pulmonary embolism; Z86.718 Personal history of other venous thrombosis and embolism; Z99.81 Dependence on supplemental oxygen; Z86.16 Personal history of COVID-19; Z88.8 Allergy status to other drugs, medicaments and biological substances; Z79.01 Long term (current) use of anticoagulants; Z79.899 Other long term (current) drug therapy

== ENCOUNTER 2021-06-14 20:34 | Observation (INO) | payer OTHER, MEDICARE ==
[~2021-06-14] VITALS: Ht 182.9 cm; Wt 145.1 kg
--- NOTE | ~2021-06-14 | CON ---
[address] [address] CONSULTATION Name: VAL GAONA Room: [address] M.R.#: [id number] Admission: 06/14/21 Attend Phys: Nichelle Rodriguez MD Discharge: Date of : 50 Report #: [id number] THIS REPORT FOR: cc: Hansel Tee Bradley L. DO Khosla, Parveen K. MD ~ DATE OF CONSULTATION: 06/15/2021 HISTORY OF PRESENT ILLNESS: This is a 71-year-old male patient who was evaluated by me to look for any neurological etiology for the patient's episode of syncope. He had more than 1 episode of syncope. The present episode occurred because the patient was on the toilet and he was trying to get up and he passed out. He does not remember anything about it, but he had stopped breathing and then he has to be shaken before he started to breathe. There are extensive notes in the chart from the Emergency Room physician and from consultants including Cardiology and I will not repeat that here. Apparently, it was noticed that his eyes also rolled back to his head. He had stopped breathing. One of the records indicates that his pulse was low when it happened. REVIEW OF SYSTEMS: Very extensive in this patient. A 14-point review of system was carried out and is positive for DVT, PE. He has a filter. He is on chronic anticoagulation, history of hypertension, obstructive sleep apnea, spinal stenosis, knee problems with the left knee, morbid obesity, hyperlipidemia. He had COVID in August. He has a complication from the COVID. He has been to rehab facility and he said he had TIA. When I asked him to explain to me what happened during this TIA, he is unable to tell. He was found to have sinus pauses in the cardiac rhythm at one time and he was asked to discontinue metoprolol, but he never did. This was because of some misunderstanding as I understand. A 14-point review of system was carried out. It is also positive for carpal tunnel syndrome, DVT, sciatic pain, hypertension, obstructive sleep apnea, kidney disease, GERD, hyperlipidemia, congestive heart failure. He denies any eye, ENT or any psychiatric symptoms at the moment. PAST MEDICAL HISTORY: Positive for similar syncope and he was found to have pauses. FAMILY HISTORY: Negative for early age stroke. SOCIAL HISTORY: He does not use alcohol. PHYSICAL EXAMINATION: He is alert and responsive. His memory is poor. He tells me it is 06/25. I gave him an opportunity to correct it, but he did not correct it, but I do not know what his baseline is. His speech looks intact. Cranial nerve examination 2-12 looks unremarkable. He moves all 4 [place] [address] CONSULTATION Name: VAL GAONA [address] [id number] Admission: 06/14/21 Attend Phys: Nichelle Rodriguez MD Discharge: Date of : 50 Report #: [id number] He can move even the left lower extremity except the knee. He did a pretty good with the position sense on both sides. On the right knee, even reflex was diminished. I cannot tell about plantar. I could not look at the patient's fundus. There is no meningeal sign in this patient. Cardiac examination is unremarkable. He is morbidly obese. His blood pressure is 163/55, respirations 20, pulse is 81, temperature is 97.8. When he came in, his GFR was low. It is becoming better. He does not appear to have much edema, but he is so obese. It is difficult to tell. Same is true with the pulses. IMPRESSION: Most likely etiology for the patient's symptoms is non-neurological, but he had rolling of the eye and he stopped breathing. Unusual etiology like subarachnoid hemorrhage or transient ischemic attack can be excluded, especially if he has thrombotic event, even on anticoagulation. I will get an MRI and EEG done. If that is negative, then I will further exclude any central nervous system pathology and main management will be management of systemic problems. Thank you very much for this referral and I discussed all of it in detail with the patient. By: [id number] 1924Ptammie Villa MD /nt
--- NOTE | ~2021-06-14 | EEG ---
[address] [address] EEG STUDY REPORT Name: VAL GAONA Room: [address] M.R.#: [id number] Admission: 06/14/21 Attend Phys: Nichelle Rodriguez MD Discharge: 06/16/21 Date of : 50 Report #: [id number] THIS REPORT FOR: cc: Hansel Tee Bradley L. DO Khosla,Rito Lao MD ~ DATE OF SERVICE: 06/14/2021 This patient is being evaluated for an episode of syncope. EEG was done by placing the electrode by standard 10-20 system of electrode placement. Both referential and sequential montages were used for recording. Background activity in this patient's EEG is about 10 Hz and 30 microvolt. The patient went to sleep that is associated with bilateral slowing and vertex sharp waves. Throughout the record, no active epileptiform activity was noticed. IMPRESSION: This patient's EEG is within normal limits. Thank you very much for this referral. By: [id number] Villa MD /nt
[~2021-06-14 20:34] MED LIST changes: +AMOXICILLIN 50500 MG PO
[2021-06-14 20:36] VITALS: BP 140/84
[2021-06-14] MEDS ORDERED: CQ10 PO (20:41)
[2021-06-14 21:04] LABS: ABSOLUTE BASOPHILS 0.1 thou/uL (0.0-0.2); ABSOLUTE EOSINOPHILS 0.3 thou/uL (0.0-0.7); ABSOLUTE LYMPHOCYTES 1.6 thou/uL (0.8-5.3); ABSOLUTE MONOCYTES 0.7 thou/uL (0.0-1.2); EOSINOPHILS 4.9 %; HEMATOCRIT 38.9 % (42.0-52.0); HEMOGLOBIN 12.9 gm/dL (14.0-18.0); LYMPHOCYTES 23.4 %; MCH 30.1 pg (26.0-34.0); MCHC 33.3 g/dL (28.0-37.0); MCV 90.5 fL (80.0-100.0); MONOCYTES 10.4 %; MPV 7.2 fl. (7.2-11.1); NUCLEATED RBCS 0 /100WBC; PLATELET COUNT* 205 thou/uL (150-400); POLYS 60.3 %; RDW-CV 18.1 % (10.5-14.5); WBC 6.6 thou/uL (4.0-11.0)
[2021-06-14 21:39] LABS: MAGNESIUM 2.3 mg/dL (1.8-2.4)
[2021-06-14 21:50] LABS: CALCIUM 9.3 mg/dL (8.5-10.1); CREATININE 2.1 mg/dL (0.6-1.3); POTASSIUM 4.2 mmol/L (3.5-5.1)
[2021-06-15] VITALS (10 sets, daily range): BP systolic 103–163; BP diastolic 51–86
[2021-06-15 00:22] LABS: BE 0.8 mmol/L (-2 to +3); PCO2 VENOUS 47.7 mmHg (41.0-51.0); PO2 VENOUS 46.8 mmHg (35.0-45.0)
[2021-06-15 05:06] LABS: URINE BILIRUBIN NEGATIVE (Negative); URINE BLOOD NEGATIVE (Negative); URINE CLARITY CLEAR; URINE COLOR YELLOW; URINE GLUCOSE-RANDOM NEGATIVE (Negative); URINE KETONES NEGATIVE (Negative); URINE LEUKOCYTES-REFLEX NEGATIVE (Negative); URINE NITRITE-REFLEX NEGATIVE (Negative); URINE PROTEIN NEGATIVE (Negative); URINE UROBILINOGEN 0.2 E.U./dl (0.2-1.0)
--- NOTE | 2021-06-15 13:31 | NUR ---
PATIENT BROUGHT TO ROOM [address] VIA CART. PATIENT AWAKE. ORIENTED X4. DENIES. PATIENT SAID HE HAS NEVER HAD PAIN, BUT PASSED OUT AT HOME. CALLED EMS. BROUGHT TO ER. ADMITTED TO HOSPITAL WITH DIAGNOSIS OF SYUNCOPE.
[2021-06-15 15:43] LABS: CALCIUM 9.2 mg/dL (8.5-10.1); CREATININE 1.8 mg/dL (0.6-1.3); POTASSIUM 4.3 mmol/L (3.5-5.1)
--- NOTE | 2021-06-15 16:09 | EKG ---
[place] [address] ELECTROCARDIOGRAM REPORT Name: VAL GAONA DINA Room: [address] M.R.#: [id number] Admission: 06/14/21 Attend Phys: Nichelle Rodriguez, Discharge: Date of : 50 Date of Service: 06/14/212036 Report #: [id number] THIS REPORT FOR: //name// [facility] ED Test Date: 2021-06-14 Test Time: 20:37:04 Pat Name: VAL GAONA Department: Room: [facility] Gender: M Healthcare Architect: : 1950 Requested By: Karmen Byrnes Order Number: [id number] MD: Val Bunn Measurements Intervals [place] Rate: 84 P: -12 OK: 198 QRS: 49 QRSD: 94 T: 48 QT: 388 QTc: 459 Interpretive Statements Sinus rhythm Borderline low voltage, extremity leads Baseline wander in lead(s) V6 Compared to ECG 04/18/2021 13:36:35 No significant changes Electronically Signed On 06-15-2021 16:08:48 CDT by Val Bunn [email or web address] <ELECTRONICALLY SIGNED> By: Val Bunn MD, FACC 06/15/21 1608 36 36 Val Bunn MD, FAC /EPI
--- NOTE | 2021-06-15 22:01 | CON ---
[address] [address] CONSULTATION Name: VAL GAONA Room: [address] M.R.#: [id number] Admission: 06/14/21 Attend Phys: Nichelle Rodriguez MD Discharge: Date of : 50 Report #: [id number] THIS REPORT FOR: cc: Hansel Tee Bradley L. DO Pervez, Adeel MD ~ DATE OF CONSULTATION: 06/15/2021 REQUESTING PHYSICIAN: Dr. Oliva. INDICATION FOR CONSULTATION: Shortness of breath. HISTORY OF PRESENT ILLNESS: The patient is a 71-year-old gentleman with past medical history as mentioned below. This does include a history of recurrent blood clots. The patient has an IVC filter in place, previously has used Coumadin; however, HE HAD AN ALLERGY TO EITHER COUMADIN OR ANOTHER INACTIVE SUBSTANCE THAT IS CONTAINED IN THE COUMADIN TABLETS. Therefore, was switched over to Xarelto a few years ago. He has been taking 10 mg of Xarelto for several years. He was noted to have DVT, when he had surgery on his knee in January with 10 mg of Xarelto still ongoing and therefore, this was increased to 20 mg daily. The patient's stated that he never misses a dose, and takes it very regularly. Still the patient was admitted here again in March, at that time had bilateral pulmonary emboli. There was also DVT in the left lower extremity noted. The patient subsequent to his surgery was receiving antibiotics for about 4-6 weeks and had an antibiotic spacer placed. He did have a PICC line in place and at that time, he also developed a DVT around the PICC line, note that he was on Xarelto at that time at 20 mg daily. He has a previous history of sinus arrest. This time again, he had an episode of confusion, followed by responsiveness. Briefly his states that he was not breathing either and, therefore, EMS was called. Initially, when he woke up quickly afterwards without any CPR being performed, he was short of breath. At this point, he is in fact sitting comfortably in a chair, is on room air and overall feels uncomfortable, and only complained of mild shortness of breath. He does have swelling of lower extremities and some lower extremity pain, which is longstanding. He does not have much of a cough. There is no sputum. Has had mild clear nasal discharge. Otherwise, essentially no upper respiratory complaints either. He says he uses a CPAP regularly, and his daytime sleepiness and disturbed sleep are significantly better with regular use of CPAP. REVIEW OF SYSTEMS: The patient's review of systems for 12 points is negative except as mentioned above. PAST MEDICAL HISTORY: Recurrent DVT and also acute pulmonary emboli last in March. He has been on Xarelto at 10 mg previously, increased to 20 [place] [address] CONSULTATION Name: VAL GAONA Room: [address] Verónica MEdgarREdgar#: [id number] Admission: 06/14/21 Attend Phys: Nichelle Rodriguez MD Discharge: Date of : 50 Report #: [id number] since 01/2021; obstructive sleep apnea on a CPAP long-term, he had a sleep study around 12 or 13 years ago and his CPAP was also similarly old; COVID-19 in 08/2020, he was not admitted to the hospital for this; left total knee replacement in 09/2020 with subsequent multiple surgeries on the knee, currently has an antibiotic spacer in place; carpal tunnel surgery, status post IVC filter; hypertension, history of sinus arrest, chronic kidney disease, baseline creatinine is around 1.4-1.5, MDD, gastroesophageal reflux disease, hyperlipidemia, sciatica pain. The last available echocardiogram is from February and shows a left ventricular ejection fraction of 60-65% with a pulmonary artery systolic of 41. SOCIAL HISTORY: Lifetime nonsmoker. No known history of heavy alcohol use or illegal drug use. CURRENT MEDICATIONS: List in [facility] is reviewed. HOME MEDICATIONS: Also the list in [facility] reviewed. Note that he is on Xarelto 20 mg daily, amongst other medications. FAMILY HISTORY: also had COVID in August. IMMUNIZATION HISTORY: He has since then been vaccinated for COVID. ALLERGIES: HE HAS HIVES AFTER TAKING COUMADIN IN THE PAST, NOT FULLY APPARENT TO WHETHER HE IN FACT IS ALLERGIC TO WARFARIN OR ANOTHER INACTIVE AGENT CONTAINED IN THE WARFARIN TABLETS. PHYSICAL EXAMINATION: GENERAL: He is alert, awake and oriented, does not appear to be in any distress at this time. VITAL SIGNS: Has a pulse of 77 and a blood pressure of 133/71. He is breathing at 16-20. He is saturating 97%. He is not on supplemental oxygen. He is afebrile with a temperature of 36.6. HEENT: Head is normocephalic and atraumatic. Pupils are equal and reactive. There is no throat erythema. He has a narrow airway, Mallampati 4. NECK: Does not show raised JVP asymmetry, mass or lymph nodes. CHEST: Symmetrical expansion on inspection and palpation. On auscultation, breath sounds are bilaterally equal, but decreased, I do not hear any added sounds. HEART: Regular. There is no murmur. ABDOMEN: Soft and nontender. EXTREMITIES: Lower extremities do show 2+ edema bilaterally. There is some vague discomfort in palpation of the calf. He has a brace in place on the left knee. There is some evidence [place] [address] CONSULTATION Name: VAL GAONA Room: [address] Mary#: [id number] Admission: 06/14/21 Attend Phys: Nichelle Rodriguez MD Discharge: Date of : 50 Report #: [id number] SKIN: Dry and intact. NEUROLOGIC: Moves all extremities bilaterally equally and spontaneously with no focal deficit identified. LABORATORY DATA: The patient had a chest x-ray performed last night, primarily it showed some chronic changes, but no acute infiltrate or pulmonary vascular congestion. Had venous Dopplers performed today, which shows some chronic DVT in the left leg. The patient's lab work includes a CBC as well as COVID-19 screen, which are reviewed. He is COVID-19 negative. Venous blood gas reviewed and is noncontributory. His creatinine, however, is elevated to 2.1 with his baseline creatinine being around 1.5. ASSESSMENT AND PLAN: 1. Episode of unresponsiveness/confusion. It does appear that the patient has chronic DVT and likely he has pulmonary emboli as well. However, this is unlikely to be the etiology of the patient's episode, suspect either a cardiac or neurological etiology, note that he has had a history of sinus arrest in the past and pacemaker placement was considered in the past. Neurology and Cardiology services have also been consulted. I will therefore await their input. 2. Chronic/recurrent deep vein thrombosis/acute pulmonary emboli. Note that he has been on Xarelto 20 mg daily since January and it does appear that with 20 mg dose, he has had pulmonary emboli in March and also clots at the PICC line. His says that he never misses a dose, therefore, I suspect that there is an underlying hematological disorder, leading to a hypercoagulable state. I understand he was seen by Hematology during the last admission; however, hypercoagulability workup was not performed as he would have needed anticoagulation regardless. At this point, I would like to go ahead with a hypercoagulability panel and we will try to determine the underlying hematological disorder, leading to him having thromboembolism. Meanwhile, he clearly has failed therapy with Xarelto; therefore I recommend that we switch him over to Eliquis and the same is ordered. The patient says that he, in fact, he recently received a supply of Eliquis at home; however, he has never taken it. 3. Obstructive sleep apnea. Continue CPAP. Likely, his CPAP needs have changed. He was last evaluated 12 or 13 years ago. Also, he will qualify for a new CPAP through his insurance. Note that his current CPAP is subject to recall. I told him that I will be happy to see him as an outpatient. Subsequent to his discharge from this admission and I will be happy to arrange another sleep study and a new CPAP. Meanwhile, despite the fact that his current CPAP is subject to recall the benefit of using it appears to outweigh risks and therefore, I would recommend continuing to use the current CPAP for now, but we will work towards getting it changed as soon as it is feasible. 4. Acute on chronic renal failure. His baseline creatinine is 1.5. His [address] [address] CONSULTATION Name: VAL GAONA Room: [address]#: [id number] Admission: 06/14/21 Attend Phys: Nichelle Rodriguez MD Discharge: Date of : 50 Report #: [id number] creatinine last night was 2.1. His chest x-ray does not show significant pulmonary vascular congestion. I ordered repeat labs and for now, I held his diuresis. If creatinine is rising further, then we cautiously could give him some IV fluids. If creatinine comes back to baseline, we will start diuresis again. Also, if creatinine still is elevated, then I recommend obtaining a renal ultrasound to rule out urinary tract obstructions. 3. History of left knee replacement with subsequent infection. He currently has an antibiotic spacer in place. Thanks for this consultation. <ELECTRONICALLY SIGNED> By: Hans Montoya MD 06/15/21 2201 1332 1905Amayra Montoya MD /nt
[2021-06-16 04:52] VITALS: BP 122/63
[2021-06-16 05:46] LABS: APTT 29.5 Seconds (25.0-31.3); INR 1.1; PROTIME 11.6 Seconds (9.20-11.50)
--- NOTE | 2021-06-16 08:15 | NUR ---
Pt req Tylenol - Dr Rodriguez notified at this time.
[2021-06-16 08:27] VITALS: BP 136/63
--- NOTE | 2021-06-16 11:04 | NUR ---
Chyna, cardiology FOREMAN/PROJECT MANAGER called per Dr Macias request to ensure ok for d/c today. Awaiting call back at this time. Dr rizvi also consulted. Dr Macias would like input from dmitri on ok for d/c as well.
[2021-06-16 12:40] VITALS: BP 137/87
[2021-06-16 13:21] LABS: CALCIUM 9.3 mg/dL (8.5-10.1); CREATININE 1.7 mg/dL (0.6-1.3); POTASSIUM 4.2 mmol/L (3.5-5.1)
--- NOTE | 2021-06-16 15:41 | NUR ---
CM ASSESSMENT: PT A&O, INDEPENDENT WITH ADL'S, ACTIVE AND WORKS OUTSIDE THE HOME. PT RESIDES AT HOME WITH SPOUSE. PT USES A CPAP AT [facility]. PT USES A WALKER FOR MOBILITY, AND ALSO OWNS A CANE. PT INFORMS THAT HE CURRENTLY GOES TO [facility] IN [place], AND PLANS TO RESUME THIS AT D/C. PT HAS PAST HX OF HH. PT HAS 0 HX OF SNF. CM WILL REMAIN AVAILABLE TO ASSIST AND FOLLOW NEEDED.
[2021-06-16 15:54] VITALS: BP 137/87
--- NOTE | 2021-06-16 16:04 | NUR ---
WENT OVER D/C PAPERWORK WITH PT. ALL QUESTIONS ANSWERED. IV AND TELE REMOVED. PT SENT WITH INSOLE BOTTOM FILLER X30 DAYS FROM CARDIOLOGY. SYSTEMS DEVELOPMENT CONSULTANT APPLIED THIS EARLIER THIS DATE. PTS TO BATH HOUSE ATTENDANT.
--- NOTE | 2021-06-16 17:54 | NUR ---
CARDIOLOGY PAGED. PTS ASKING ABOUT D/C METOPROLOL AND CHANGING XARELTO TO ELIQUIS WHICH MED LIST ON D/C DOES NOT CLARIFY.
--- NOTE | 2021-06-16 18:28 | NUR ---
PT WHEELED OUT VIA PASTEURISER OPERATOR WITH
[2021-06-17 19:07] LABS: ANA INTERPRETATION Negative (())
== END 2021-06-16 18:32 | disposition home or self-care (01) ==
LOC: M.ERS 20:34 → M.TBA-ER 22:08 → M.2W 06-15 10:28
PROVIDERS: Emergency Medicine; Internal Medicine Critical Care Medicine; ADMIT Internal Medicine; ATTEND Internal Medicine
DX: R55 Syncope and collapse (principal); R40.4 Transient alteration of awareness; R41.0 Disorientation, unspecified; Z20.822 Contact with and (suspected) exposure to COVID-19; I50.32 Chronic diastolic (congestive) heart failure; N18.9 Chronic kidney disease, unspecified; N17.9 Acute kidney failure, unspecified; G47.33 Obstructive sleep apnea (adult) (pediatric); E66.2 Morbid (severe) obesity with alveolar hypoventilation; J44.9 Chronic obstructive pulmonary disease, unspecified; E66.01 Morbid (severe) obesity due to excess calories; I82.509 Chronic embolism and thrombosis of unspecified deep veins of unspecified lower extremity; Z86.19 Personal history of other infectious and parasitic diseases; Z79.899 Other long term (current) drug therapy

== ENCOUNTER 2021-08-04 20:37 | Inpatient (IN) | payer OTHER, MEDICARE ==
[~2021-08-04] VITALS: Ht 182.9 cm; Wt 131.5 kg
--- NOTE | ~2021-08-04 | OP ---
[facility] [address] [place] [address] OPERATIVE REPORT Name: VAL GAONA Room: [address] IN M.R.#: [id number] Admission: 08/06/21 Attend Phys: Angel Pavon Discharge: Date of : 50 Report #: [id number] THIS REPORT FOR: cc: Hansel Tee Bradley L. DO Patterson,Lam Bernard MD ~ DATE OF SURGERY: 08/07/2021 PREOPERATIVE DIAGNOSIS: Chronic cholecystitis, biliary dyskinesia. POSTOPERATIVE DIAGNOSIS: Chronic cholecystitis, biliary dyskinesia.. OPERATION: Laparoscopic cholecystectomy. SURGEON: Dr. Lam Kaplan. ANESTHESIA: General. ESTIMATED BLOOD LOSS: Minimal. SPECIMENS: Gallbladder. DESCRIPTION OF PROCEDURE: After informed consent was obtained, the patient was brought to the operating room and placed supine. SCDs were placed and working, preoperative antibiotics were administered, general anesthesia was induced. The abdomen was prepped and draped in the usual sterile fashion. A 10 mm incision was made below the umbilicus. Fascia was incised and a trocar was placed. Pneumoperitoneum was established. Three right upper quadrant 5 mm ports were placed. Gallbladder was grasped at the fundus and retracted cephalad. Infundibulum was grasped and retracted laterally. I dissected out the cystic duct and cystic artery. Cystic duct and artery were identified as well as the cystic plate. The cystic duct and artery were then clipped and ligated leaving 2 clips on the remaining duct and one on the remaining artery. Gallbladder was then taken off the liver bed with electrocautery. It was placed into an Endopouch and removed. Fascia was then closed with a yjjbfk-rf-hlavl 0 Vicryl. Skin was closed with 4-0 Monocryl. Incisions were dressed with Steri-Strips. COMPLICATIONS: None. DISPOSITION: The patient was taken to recovery in satisfactory condition. By: [id number] Kaplan MD /simon
--- NOTE | ~2021-08-04 | H ---
[address] [address] HISTORY AND PHYSICAL Name: VAL GAONA Room: [address] IN M.R.#: [id number] Admission: 08/06/21 Attend Phys: Angel Pavon Discharge: 08/08/21 Date of : 50 Report #: [id number] THIS REPORT FOR: cc: Hansel Tee Bradley L. DO [facility],Medical Records Staff ~ For GI report, please see the Provation report in Perceptive 7 content. By: 0658Medical Records Staff PATRIA /LARS
[~2021-08-04 20:37] MED LIST changes: +CQ10 PO
[2021-08-04 20:52] VITALS: BP 115/65
[2021-08-04] MEDS ORDERED: ELIQUIS5 MG PO (20:55)
[2021-08-04 23:56] LABS: ABSOLUTE BASOPHILS 0.1 thou/uL (0.0-0.2); ABSOLUTE EOSINOPHILS 0.4 thou/uL (0.0-0.7); ABSOLUTE LYMPHOCYTES 1.6 thou/uL (0.8-5.3); ABSOLUTE MONOCYTES 0.9 thou/uL (0.0-1.2); BASOPHILS 0.9 %; EOSINOPHILS 4.6 %; HEMATOCRIT 42.8 % (42.0-52.0); HEMOGLOBIN 14.1 gm/dL (14.0-18.0); LYMPHOCYTES 17.5 %; MCH 29.3 pg (26.0-34.0); MCV 88.8 fL (80.0-100.0); MONOCYTES 9.9 %; MPV 7.3 fl. (7.2-11.1); NUCLEATED RBCS 0 /100WBC; PLATELET COUNT* 235 thou/uL (150-400); POLYS 67.1 %; RBC 4.82 mil/uL (4.50-6.00); RDW-CV 17.5 % (10.5-14.5); WBC 8.9 thou/uL (4.0-11.0)
[2021-08-04 23:58] LABS: CALCIUM 9.7 mg/dL (8.5-10.1); CREATININE 1.9 mg/dL (0.6-1.3); POTASSIUM 4.4 mmol/L (3.5-5.1)
[2021-08-05 00:02] LABS: ALBUMIN 3.6 g/dL (3.4-5.0); MAGNESIUM 2.4 mg/dL (1.8-2.4); TOTAL BILIRUBIN 0.4 mg/dL (<0.1-1.0); TOTAL PROTEIN 7.6 g/dL (6.4-8.2)
[2021-08-05 07:30] VITALS: BP 155/85
--- NOTE | 2021-08-05 09:01 | EKG ---
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1950 Requested By: Karmen Byrnes Order Number: [id number] MD: Val Bunn Measurements Intervals [facility] Rate: 64 P: 0 NM: 64 QRS: 45 QRSD: 103 T: 29 QT: 389 QTc: 402 Interpretive Statements Sinus rhythm Atrial premature complex Inferior infarct, old Baseline wander in lead(s) II,III,aVR,aVL,aVF,V1 Compared to ECG 06/14/2021 20:37:04 Atrial premature complex(es) now present Electronically Signed On 08-05-2021 9:01:47 OIL SCOUT by Val Bunn [email or web address] <ELECTRONICALLY SIGNED> By: Val Bunn MD, FACC 08/05/21900 53 53 Val Bunn MD, [facility] /EPI
[2021-08-05 11:00] VITALS: BP 109/64
[2021-08-05 11:15] LABS: URINE BILIRUBIN NEGATIVE (Negative); URINE BLOOD NEGATIVE (Negative); URINE CLARITY CLEAR; URINE COLOR YELLOW; URINE GLUCOSE-RANDOM NEGATIVE (Negative); URINE KETONES NEGATIVE (Negative); URINE LEUKOCYTES-REFLEX NEGATIVE (Negative); URINE NITRITE-REFLEX NEGATIVE (Negative); URINE PROTEIN NEGATIVE (Negative); URINE SPECIFIC GRAVITY 1.025 (1.005-1.030); URINE UROBILINOGEN 0.2 E.U./dl (0.2-1.0)
[2021-08-05] MEDS ORDERED: TRAVATAN Z2.5 ML OPHTHALMIC (15:19)
[2021-08-05] MEDS ORDERED: OCUFLOX5 ML LT. EYE (15:19)
[2021-08-05] MEDS ORDERED: LOTEMAX5 ML LT. EYE (15:20)
[2021-08-05] MEDS ORDERED: LOTEMAX5 ML RT. EYE (15:21)
[2021-08-05 15:30] VITALS: BP 121/68
[2021-08-05 19:26] VITALS: BP 117/72
[2021-08-06] VITALS: BP 118/68
[2021-08-06 04:00] VITALS: BP 118/68
[2021-08-06 04:00] LABS: HEMATOCRIT 39.5 % (42.0-52.0); MCH 29.3 pg (26.0-34.0); MCHC 32.8 g/dL (28.0-37.0); MCV 89.2 fL (80.0-100.0); MPV 7.3 fl. (7.2-11.1); RBC 4.43 mil/uL (4.50-6.00); RDW-CV 16.8 % (10.5-14.5); WBC 6.5 thou/uL (4.0-11.0)
[2021-08-06 04:11] LABS: ALBUMIN 3.1 g/dL (3.4-5.0); CALCIUM 9.2 mg/dL (8.5-10.1); CREATININE 1.6 mg/dL (0.6-1.3); MAGNESIUM 2.1 mg/dL (1.8-2.4); POTASSIUM 4.2 mmol/L (3.5-5.1); TOTAL BILIRUBIN 0.5 mg/dL (<0.1-1.0); TOTAL PROTEIN 6.6 g/dL (6.4-8.2)
[2021-08-06 08:00] VITALS: BP 128/61
[2021-08-06 12:36] VITALS: BP 132/76
[2021-08-06 15:30] VITALS: BP 132/76
[2021-08-06 20:27] VITALS: BP 166/82
[2021-08-07] VITALS: BP 129/74
[2021-08-07 04:00] VITALS: BP 133/83
[2021-08-07 04:46] LABS: HEMATOCRIT 39.8 % (42.0-52.0); HEMOGLOBIN 13.4 gm/dL (14.0-18.0); MCH 29.6 pg (26.0-34.0); MCHC 33.7 g/dL (28.0-37.0); MCV 87.9 fL (80.0-100.0); MPV 6.9 fl. (7.2-11.1); RBC 4.53 mil/uL (4.50-6.00); RDW-CV 17.3 % (10.5-14.5); WBC 6.8 thou/uL (4.0-11.0)
[2021-08-07 08:05] LABS: ALBUMIN 3.3 g/dL (3.4-5.0); CALCIUM 9.5 mg/dL (8.5-10.1); CREATININE 1.6 mg/dL (0.6-1.3); MAGNESIUM 2.3 mg/dL (1.8-2.4); POTASSIUM 4.1 mmol/L (3.5-5.1); TOTAL BILIRUBIN 0.6 mg/dL (<0.1-1.0)
[2021-08-07 08:16] VITALS: BP 120/80
[2021-08-07 14:20] VITALS: BP 140/82
[2021-08-07 19:45] VITALS: BP 124/72
[2021-08-08 04:22] VITALS: BP 123/74
[2021-08-08 12:07] VITALS: BP 148/74
[2021-08-08 15:16] VITALS: BP 148/74
--- NOTE | 2021-08-11 15:19 | PATH ---
[address] [address] PATHOLOGY RPT PROCEDURE Name: VAL GAONA Room: [address] IN M.R.#: [id number] Admission: 08/06/21 Date of : 50 Discharge: 08/08/21 Report #: [id number] Path Case #: [id number] [facility] Accession Number: [id number] . 01 Material submitted: . esophagus, E-G Junction - ULCERATED GE JUNCTION MASS . 01 Clinical history: . EGD IN OR ABDOMINAL PAIN . 02 Diagnosis: Ulcerated GE junction mass: - ADENOCARCINOMA, POORLY-DIFFERENTIATED, WITH UNDIFFERENTIATED COMPONENT, UNDERMINING ACUTELY INFLAMED SQUAMOUS MUCOSA. SEE COMMENT. - Negative for vascular invasion. . (CHERYL:mml; 08/10/2021) [facility] 08/10/2021 1006 Local . 02 Comment: The great majority of the submitted tissue represents malignancy which is heterogeneous in appearance having areas of zjfpbzom-ab-durh differentiation as well as a focus of undifferentiation where there are sheets of malignant cells. No Rohan's mucosa is identified. HER2 testing is pending and will be the subject of an addendum report. . Reviewed with Dr. Dinh Madrigal on 08/10/2021 who agrees with the diagnosis. Dr. Krause notified at approximately 1225 on 08/10/2021. . (CHERYL:mml; 08/10/2021) . 02 Electronically signed: . Beau Maloney MD, Pathologist NPI- [id number] . 01 Gross description: . The specimen is received in formalin, labeled "Val Gaona, ulcerated GE junction mass". Received are multiple segments of pale conner tissue ranging in size from 0.2-0.7 cm in maximum dimensions. The specimen is entirely submitted in cassette A1. ([facility]; 08/07/2021) NRI/NRI 08/07/2021 1707 Local . 02 Pathologist provided ICD-10: C15.5 . 02 [place] [address] PATHOLOGY RPT PROCEDURE Name: VAL GAONA Room: [address] M.R.#: [id number] Admission: 08/06/21 Date of : 50 Discharge: 08/08/21 Report #: [id number] Path Case #: [id number] Specimen Comment: A courtesy copy of this report has been sent to [phone] Specimen Comment: [phone], Specimen Comment: Report sent to , DR STARR / DR BOYER Specimen Comment: A duplicate report has been generated due to demographic updates. Performed at: [address], [place] [id number] MD Alberto Orellana MD Phone: [phone] Performed at: [facility] [address], [place], [place] [id number] MD Beau Maloney MD Phone: [phone]
== END 2021-08-08 15:30 | disposition home or self-care (01) | DRG 418 ==
LOC: M.ERS 20:37 → M.TBA-ER 08-05 02:53 → M.3W 08-06 09:23 → M.TBA-ER 08-06 15:53 → M.3W 08-06 19:24
PROVIDERS: Emergency Medicine; Internal Medicine; ADMIT Internal Medicine; ATTEND Internal Medicine
PROC: 0DB68ZX Excision of Stomach, Via Natural or Artificial Opening Endoscopic, Diagnostic (ICD-10-PCS; principal; 2021-08-06)
PROC: 0FT44ZZ Resection of Gallbladder, Percutaneous Endoscopic Approach (ICD-10-PCS; 2021-08-07)
DX: K81.0 Acute cholecystitis (principal); N17.9 Acute kidney failure, unspecified; K82.8 Other specified diseases of gallbladder; K44.9 Diaphragmatic hernia without obstruction or gangrene; N18.30 Chronic kidney disease, stage 3 unspecified; K22.9 Disease of esophagus, unspecified; K81.1 Chronic cholecystitis; R33.9 Retention of urine, unspecified; Z86.718 Personal history of other venous thrombosis and embolism; Z88.8 Allergy status to other drugs, medicaments and biological substances; Z20.822 Contact with and (suspected) exposure to COVID-19